=== PATIENT | female | born 1975 | race Caucasian/White ===

== ENCOUNTER 2017-06-30 06:27 | Observation (INO) | payer OTHER ==
[~2017-06-30] VITALS: Ht 170.2 cm; Wt 108.9 kg
[~2017-06-30 06:27] MED LIST: Mobic15 MG PO
[2017-06-30] MEDS ORDERED: QUET25 PO (06:59)
[2017-06-30] MEDS ORDERED: LITH300C PO (06:59)
[2017-06-30 07:09] LABS: BASOPHILS ABSOLUTE AUTO 0.06 K/mm3 (0.00-0.23); BASOPHILS PERCENT AUTO 1 % (0-2); EOSINOPHILS ABSOLUTE AUTO 0.37 K/mm3 (0.00-0.68); EOSINOPHILS PERCENT AUTO 3 % (0-6); Hematocrit 37.6 % (33.0-51.0); Hemoglobin 12.2 g/dL (11.5-16.0); IMMATURE GRAN ABSOLUTE AUTO 0.06 K/mm3 (0.00-0.10); IMMATURE GRAN PERCENT AUTO 1 % (0-1); LYMPHOCYTES PERCENT AUTO 20 % (21-46); MONOCYTES ABSOLUTE AUTO 0.79 K/mm3 (0.16-1.47); MONOCYTES PERCENT AUTO 7 % (4-13); Mean Corpuscular HGB 29.9 pg (26.0-34.0); Mean Corpuscular HGB Conc 32.4 g/dL (31.5-36.5); Mean Corpuscular Volume 92 fL (80-100); Mean Platelet Volume 9.1 fL (9.1-12.4); NEUTROPHILS ABSOLUTE AUTO 7.77 K/mm3 (1.96-9.15); NEUTROPHILS PERCENT AUTO 69 % (41-73); Platelet Count 385 K/mm3 (150-400); RDW Coefficient Variation 13.5 % (11.7-14.2); RDW Standard Deviation 45.4 fL (35.1-46.3); Red Blood Cell Count 4.08 M/mm3 (3.80-5.20); White Blood Cell Count 11.25 K/mm3 (4.00-11.30)
[2017-06-30 07:32] LABS: Anion Gap 6 mmol/L (6-16); Blood Urea Nitrogen 10 mg/dL (8-24); Bun/Creatinine Ratio 13.3 (12.0-20.0); CO2, Blood 24 mmol/L (21-32); Calcium, Blood 8.8 mg/dL (8.5-10.1); Chloride, Blood 108 mmol/L (98-108); Creatinine, Blood 0.75 mg/dL (0.40-1.00); Glomerular Filtration Rate >60 (60-); Glucose, Blood 107 mg/dL (70-99); Sodium, Blood 138 mmol/L (136-145)
[2017-06-30 07:39] LABS: Lithium 0.69 mmol/L (0.60-1.20)
[2017-06-30 11:20] LABS: Source, Urine Clean Catch
[2017-06-30 11:28] LABS: Bilirubin, Urine Neg (Neg); Blood, Urine Neg (Neg); Glucose Qualitative, Urine Neg (Neg); Ketones, Urine Neg (Neg); Leukocyte Esterase, Urine Neg (Neg); Nitrite, Urine Neg (Neg); Protein, Urine Neg (Neg); Urobilinogen, Urine NORM (Normal)
[2017-06-30 11:35] LABS: Appearance, Urine Clear (Clear); Color, Urine Pale Yellow (P-Yellow)
[2017-06-30 11:39] LABS: U Amphetamine Screen Not Detected; U Barbituate Screen Not Detected; U Benzodiazapine Screen Not Detected; U Cannabinoids Screen DETECTED; U Cocaine Screen Not Detected; U Methadone Screen Not Detected; U Methamphetamine Screen Not Detected; U Opiates Screen Not Detected; U Phencyclidine Screen Not Detected
[2017-06-30 11:40] LABS: U Buprenorphine Screen Not Detected; U Oxycodone Screen Not Detected; U Propoxyphene Screen Not Detected
[2017-07-01 08:46] LABS: Lithium 0.35 mmol/L (0.60-1.20)
[2017-07-01 09:46] LABS: BASOPHILS ABSOLUTE AUTO 0.07 K/mm3 (0.00-0.23); BASOPHILS PERCENT AUTO 1 % (0-2); EOSINOPHILS ABSOLUTE AUTO 0.23 K/mm3 (0.00-0.68); EOSINOPHILS PERCENT AUTO 2 % (0-6); Hematocrit 38.3 % (33.0-51.0); Hemoglobin 12.2 g/dL (11.5-16.0); IMMATURE GRAN ABSOLUTE AUTO 0.05 K/mm3 (0.00-0.10); IMMATURE GRAN PERCENT AUTO 0 % (0-1); LYMPHOCYTES PERCENT AUTO 18 % (21-46); MONOCYTES ABSOLUTE AUTO 0.91 K/mm3 (0.16-1.47); MONOCYTES PERCENT AUTO 8 % (4-13); Mean Corpuscular HGB 29.9 pg (26.0-34.0); Mean Corpuscular HGB Conc 31.9 g/dL (31.5-36.5); Mean Corpuscular Volume 94 fL (80-100); Mean Platelet Volume 9.2 fL (9.1-12.4); NEUTROPHILS ABSOLUTE AUTO 8.12 K/mm3 (1.96-9.15); NEUTROPHILS PERCENT AUTO 71 % (41-73); Platelet Count 402 K/mm3 (150-400); RDW Coefficient Variation 13.6 % (11.7-14.2); RDW Standard Deviation 47.2 fL (35.1-46.3); Red Blood Cell Count 4.08 M/mm3 (3.80-5.20); White Blood Cell Count 11.48 K/mm3 (4.00-11.30)
[2017-07-01 10:09] LABS: Alanine Aminotransfer (ALT/SGP 48 U/L (12-78); Albumin, Blood 3.8 g/dL (3.4-5.0); Albumin/Globulin Ratio 1.1 (0.8-1.8); Alk Phos 85 U/L (50-136); Anion Gap 6 mmol/L (6-16); Aspartate Aminotrans (AST/SGOT 34 U/L (12-37); Bilirubin, Total 0.3 mg/dL (0.1-1.0); Blood Urea Nitrogen 10 mg/dL (8-24); Bun/Creatinine Ratio 11.6 (12.0-20.0); CO2, Blood 25 mmol/L (21-32); Calcium, Blood 8.8 mg/dL (8.5-10.1); Chloride, Blood 110 mmol/L (98-108); Creatinine, Blood 0.86 mg/dL (0.40-1.00); Ethanol (Alcohol), Blood, Med <3 mg/dL; Globulin, Blood 3.6 g/dL (2.2-4.0); Glomerular Filtration Rate >60 (60-); Glucose, Blood 105 mg/dL (70-99); Potassium, Blood 4.1 mmol/L (3.5-5.5); Salicylate <1.7 mg/dL (2.8-20.0); Sodium, Blood 141 mmol/L (136-145); Thyroxine (T4) 8.3 ug/dL (4.8-13.9); Total Protein, Blood 7.4 g/dL (6.4-8.2)
[2017-07-01 10:14] LABS: Acetaminophen, Random <2.0 ug/mL (10.0-30.0)
[2017-07-02 09:46] LABS: Lithium 0.75 mmol/L (0.60-1.20)
[2017-07-02 20:23] LABS: Candida species (DNA Probe) Negative (NEGATIVE); G. vaginalis (DNA Probe) Negative (NEGATIVE); T. vaginalis (DNA Probe) Negative (NEGATIVE)
[2017-07-05 03:25] LABS: Source Cervix
[2017-07-05 07:23] LABS: Lithium 0.75 mmol/L (0.60-1.20)
[2017-07-05] MEDS ORDERED: Cardizem Cd180 MG PO (15:54)
[2017-07-23] MEDS ORDERED: QUET25 PO (05:15)
[2017-07-23] MEDS ORDERED: NICO21TP TD (13:50)
[2017-07-23] MEDS ORDERED: Bactrim 400-801 EACH PO (13:54)
== END 2017-07-05 16:23 | disposition home or self-care (01) ==
LOC: ER 06:27 → EOR 06:28
PROVIDERS: Emergency Medicine; Physician Assistant; Psychiatry & Neurology Psychiatry
DX: F15.94 Other stimulant use, unspecified with stimulant-induced mood disorder (principal); F15.959 Other stimulant use, unspecified with stimulant-induced psychotic disorder, unspecified; F43.9 Reaction to severe stress, unspecified; R05 Cough; Z72.0 Tobacco use; Z79.1 Long term (current) use of non-steroidal anti-inflammatories (NSAID)
CPT/HCPCS: 36415; 80048; 80053; 80178; 81003; 84436; 84443; 84703; 85025; 87070; 87205; 87480; 87491; 87510; 87591; 87660; 87661; 96372; 99285; G0378; G0480; J3486

== ENCOUNTER 2017-07-22 21:37 | Observation (INO) | payer OTHER ==
[~2017-07-22] VITALS: Ht 175.3 cm; Wt 107.4 kg
[~2017-07-22 21:37] MED LIST changes: +Cardizem Cd180 MG PO; +LITH300C PO; +QUET25 PO
[2017-07-22 23:06] LABS: Source, Urine Clean Catch
[2017-07-22 23:09] LABS: Bilirubin, Urine Neg (Neg); Blood, Urine 5+ (Neg); Glucose Qualitative, Urine Neg (Neg); Ketones, Urine Neg (Neg); Leukocyte Esterase, Urine 1+ (Neg); Nitrite, Urine Neg (Neg); Protein, Urine 2+ (Neg); Urobilinogen, Urine NORM (Normal)
[2017-07-22 23:10] LABS: Appearance, Urine Hazy (Clear); Color, Urine Amber (P-Yellow)
[2017-07-22 23:12] LABS: BASOPHILS ABSOLUTE AUTO 0.09 K/mm3 (0.00-0.23); BASOPHILS PERCENT AUTO 1 % (0-2); EOSINOPHILS ABSOLUTE AUTO 0.49 K/mm3 (0.00-0.68); EOSINOPHILS PERCENT AUTO 4 % (0-6); Hematocrit 40.1 % (33.0-51.0); Hemoglobin 12.7 g/dL (11.5-16.0); IMMATURE GRAN ABSOLUTE AUTO 0.07 K/mm3 (0.00-0.10); IMMATURE GRAN PERCENT AUTO 1 % (0-1); LYMPHOCYTES ABSOLUTE AUTO 3.53 K/mm3 (0.84-5.20); LYMPHOCYTES PERCENT AUTO 29 % (21-46); MONOCYTES ABSOLUTE AUTO 1.01 K/mm3 (0.16-1.47); MONOCYTES PERCENT AUTO 8 % (4-13); Mean Corpuscular HGB 29.5 pg (26.0-34.0); Mean Corpuscular HGB Conc 31.7 g/dL (31.5-36.5); Mean Corpuscular Volume 93 fL (80-100); Mean Platelet Volume 9.5 fL (9.1-12.4); NEUTROPHILS ABSOLUTE AUTO 6.84 K/mm3 (1.96-9.15); NEUTROPHILS PERCENT AUTO 57 % (41-73); Platelet Count 347 K/mm3 (150-400); RDW Coefficient Variation 13.3 % (11.7-14.2); RDW Standard Deviation 46.4 fL (35.1-46.3); Red Blood Cell Count 4.31 M/mm3 (3.80-5.20); White Blood Cell Count 12.03 K/mm3 (4.00-11.30)
[2017-07-22 23:18] LABS: Bacteria Mod /hpf; Squamous Epithelial Cells Few /hpf (Few)
[2017-07-22 23:21] LABS: U Amphetamine Screen Not Detected; U Barbituate Screen Not Detected; U Benzodiazapine Screen Not Detected; U Buprenorphine Screen Not Detected; U Cannabinoids Screen Not Detected; U Cocaine Screen Not Detected; U Methadone Screen Not Detected; U Methamphetamine Screen Not Detected; U Opiates Screen Not Detected; U Oxycodone Screen Not Detected; U Phencyclidine Screen Not Detected; U Propoxyphene Screen Not Detected
[2017-07-22 23:30] LABS: Alanine Aminotransfer (ALT/SGP 19 U/L (12-78); Albumin, Blood 3.6 g/dL (3.4-5.0); Alk Phos 82 U/L (50-136); Anion Gap 9 mmol/L (6-16); Aspartate Aminotrans (AST/SGOT 10 U/L (12-37); Bilirubin, Total 0.1 mg/dL (0.1-1.0); Blood Urea Nitrogen 13 mg/dL (8-24); Bun/Creatinine Ratio 17.6 (12.0-20.0); CO2, Blood 24 mmol/L (21-32); Calcium, Blood 8.8 mg/dL (8.5-10.1); Chloride, Blood 107 mmol/L (98-108); Creatinine, Blood 0.74 mg/dL (0.40-1.00); Ethanol (Alcohol), Blood, Med <3 mg/dL; Globulin, Blood 3.7 g/dL (2.2-4.0); Glomerular Filtration Rate >60 (60-); Glucose, Blood 129 mg/dL (70-99); Potassium, Blood 3.2 mmol/L (3.5-5.5); Salicylate <1.7 mg/dL (2.8-20.0); Sodium, Blood 140 mmol/L (136-145); Total Protein, Blood 7.3 g/dL (6.4-8.2)
[2017-07-22 23:31] LABS: Acetaminophen, Random <2.0 ug/mL (10.0-30.0)
[2017-07-23] MEDS ORDERED: QUET25 PO ×2 (05:15)
[2017-07-23 06:07] LABS: BASOPHILS ABSOLUTE AUTO 0.09 K/mm3 (0.00-0.23); BASOPHILS PERCENT AUTO 1 % (0-2); EOSINOPHILS ABSOLUTE AUTO 0.46 K/mm3 (0.00-0.68); EOSINOPHILS PERCENT AUTO 4 % (0-6); Hematocrit 39.9 % (33.0-51.0); Hemoglobin 12.5 g/dL (11.5-16.0); IMMATURE GRAN ABSOLUTE AUTO 0.07 K/mm3 (0.00-0.10); IMMATURE GRAN PERCENT AUTO 1 % (0-1); LYMPHOCYTES ABSOLUTE AUTO 2.72 K/mm3 (0.84-5.20); LYMPHOCYTES PERCENT AUTO 25 % (21-46); MONOCYTES ABSOLUTE AUTO 0.89 K/mm3 (0.16-1.47); MONOCYTES PERCENT AUTO 8 % (4-13); Mean Corpuscular HGB 29.2 pg (26.0-34.0); Mean Corpuscular HGB Conc 31.3 g/dL (31.5-36.5); Mean Corpuscular Volume 93 fL (80-100); Mean Platelet Volume 9.5 fL (9.1-12.4); NEUTROPHILS ABSOLUTE AUTO 6.88 K/mm3 (1.96-9.15); NEUTROPHILS PERCENT AUTO 62 % (41-73); Platelet Count 361 K/mm3 (150-400); RDW Coefficient Variation 13.5 % (11.7-14.2); RDW Standard Deviation 46.4 fL (35.1-46.3); Red Blood Cell Count 4.28 M/mm3 (3.80-5.20); White Blood Cell Count 11.11 K/mm3 (4.00-11.30)
[2017-07-23 06:29] LABS: Alanine Aminotransfer (ALT/SGP 18 U/L (12-78); Albumin, Blood 3.5 g/dL (3.4-5.0); Alk Phos 85 U/L (50-136); Anion Gap 6 mmol/L (6-16); Aspartate Aminotrans (AST/SGOT 9 U/L (12-37); Bilirubin, Total 0.3 mg/dL (0.1-1.0); Blood Urea Nitrogen 13 mg/dL (8-24); Bun/Creatinine Ratio 18.3 (12.0-20.0); CO2, Blood 23 mmol/L (21-32); Calcium, Blood 8.6 mg/dL (8.5-10.1); Chloride, Blood 112 mmol/L (98-108); Creatinine, Blood 0.71 mg/dL (0.40-1.00); Globulin, Blood 3.6 g/dL (2.2-4.0); Glomerular Filtration Rate >60 (60-); Glucose, Blood 99 mg/dL (70-99); Potassium, Blood 3.9 mmol/L (3.5-5.5); Sodium, Blood 141 mmol/L (136-145); Total Protein, Blood 7.1 g/dL (6.4-8.2)
[2017-07-23] MEDS ORDERED: NICO21TP TD ×2 (13:50)
[2017-07-23] MEDS ORDERED: Bactrim 400-801 EACH PO ×2 (13:54)
== END 2017-07-23 14:13 | disposition home or self-care (01) ==
LOC: ER 21:37 → ERHOLD 21:38 → MEDS 07-23 05:04
PROVIDERS: Emergency Medicine; Internal Medicine
DX: R47.81 Slurred speech (principal); F25.9 Schizoaffective disorder, unspecified; F31.9 Bipolar disorder, unspecified; G47.00 Insomnia, unspecified; F41.0 Panic disorder [episodic paroxysmal anxiety]; N39.0 Urinary tract infection, site not specified; Z91.09 Other allergy status, other than to drugs and biological substances; Z23 Encounter for immunization
CPT/HCPCS: 36415; 70450; 80053; 80178; 81001; 81025; 85025; 87086; 93005; 93010; 96360; 96361; 96372; 96374; 99285; G0008; G0378; G0480; J1650; J3480; J7030; Q2038

== ENCOUNTER 2017-07-23 20:00 | Emergency (ER) | payer OTHER ==
[~2017-07-23] VITALS: Ht 170.2 cm; Wt 104.3 kg
[~2017-07-23 20:00] MED LIST changes: +Bactrim 400-801 EACH PO; +NICO21TP TD
== END 2017-07-23 23:55 | disposition left against medical advice (07) ==
LOC: ER 20:00
DX: Z53.21 Procedure and treatment not carried out due to patient leaving prior to being seen by health care provider (principal)

== ENCOUNTER → 2017-10-24 | Outpatient (CLI) | payer OTHER | LOC: LAB SHORT 14:15 → LAB 14:15 | PROVIDERS: Nurse Practitioner Family | DX: Z12.4 Encounter for screening for malignant neoplasm of cervix (principal) | CPT/HCPCS: G0145 ==

== ENCOUNTER 2017-11-10 19:10 | Emergency (ER) | payer OTHER ==
[~2017-11-10] VITALS: Ht 170.2 cm; Wt 108.9 kg
[2017-11-10 20:24] LABS: Lithium 0.84 mmol/L (0.60-1.20)
== END 2017-11-10 19:52 | disposition left against medical advice (07) ==
LOC: ER 19:10
PROVIDERS: Physician Assistant
DX: Z51.81 Encounter for therapeutic drug level monitoring (principal); F31.9 Bipolar disorder, unspecified; Z91.048 Other nonmedicinal substance allergy status; Z91.09 Other allergy status, other than to drugs and biological substances; F17.200 Nicotine dependence, unspecified, uncomplicated; Z79.899 Other long term (current) drug therapy
CPT/HCPCS: 36415; 80178; 99283

== ENCOUNTER 2017-11-12 10:29 | Observation (INO) | payer OTHER ==
[~2017-11-12] VITALS: Ht 170.2 cm; Wt 108.9 kg
[2017-11-12 11:45] LABS: U Amphetamine Screen Not Detected; U Barbituate Screen Not Detected; U Benzodiazapine Screen Not Detected; U Methamphetamine Screen Not Detected
[2017-11-12 11:46] LABS: U Buprenorphine Screen Not Detected; U Cannabinoids Screen DETECTED; U Cocaine Screen Not Detected; U Methadone Screen Not Detected; U Opiates Screen Not Detected; U Oxycodone Screen Not Detected; U Phencyclidine Screen Not Detected; U Propoxyphene Screen Not Detected
== END 2017-11-12 13:41 | disposition home or self-care (01) ==
LOC: ER 10:29 → EOR 12:44
PROVIDERS: Emergency Medicine
DX: R44.0 Auditory hallucinations (principal); F41.9 Anxiety disorder, unspecified; F31.9 Bipolar disorder, unspecified; K21.9 Gastro-esophageal reflux disease without esophagitis
CPT/HCPCS: 81025; 93005; 93010; 99285; G0378; Q3014

== ENCOUNTER 2017-11-13 02:17 | Emergency (ER) | payer OTHER ==
[~2017-11-13] VITALS: Ht 170.2 cm; Wt 90.7 kg
== END 2017-11-13 03:32 | disposition home or self-care (01) ==
LOC: ER 02:17
DX: M19.90 Unspecified osteoarthritis, unspecified site (principal); F31.9 Bipolar disorder, unspecified; F17.210 Nicotine dependence, cigarettes, uncomplicated; Z91.048 Other nonmedicinal substance allergy status; Z79.899 Other long term (current) drug therapy
CPT/HCPCS: 99283

== ENCOUNTER 2018-07-08 08:05 | Emergency (ER) | payer OTHER ==
[~2018-07-08] VITALS: Ht 170.2 cm; Wt 99.8 kg
== END 2018-07-08 10:13 | disposition home or self-care (01) ==
LOC: ER 08:05
DX: K59.00 Constipation, unspecified (principal); Z91.048 Other nonmedicinal substance allergy status; Z79.899 Other long term (current) drug therapy; F31.9 Bipolar disorder, unspecified; Z87.891 Personal history of nicotine dependence
CPT/HCPCS: 74022; 99284-25

== ENCOUNTER 2018-09-07 06:17 | Emergency (ER) | payer OTHER ==
[~2018-09-07] VITALS: Ht 170.2 cm; Wt 97.5 kg
== END 2018-09-07 08:29 | disposition home or self-care (01) ==
LOC: ER 06:17
DX: R51 Headache (principal); J30.81 Allergic rhinitis due to animal (cat) (dog) hair and dander; F17.200 Nicotine dependence, unspecified, uncomplicated
CPT/HCPCS: 96372; 99284-25; J1885; Q0163

== ENCOUNTER 2019-12-21 13:48 | Day surgery (SDC) | payer OTHER ==
[~2019-12-21] VITALS: Ht 170.2 cm; Wt 103.7 kg
[2019-12-21] MEDS ORDERED: MONT4 PO (15:14)
[2019-12-21] MEDS ORDERED: FLUT1DIS5 INH (15:15)
--- NOTE | 2019-12-21 17:06 | NUR ---
12/21/19 3616 Beth Peterson WE WERE MOVING TO STEPDOWN THE PATIENT STATED SHE WAS HAVING NAUSEA, GAVE HER EMESIS BAG AND SHE STARTED THROWING UP. REGLAN GIVEN PER MD ORDER AND PATIENT WAS ABLE TO TRANSITION TO CHAIR WITH MINIMAL HELP. STATES NO PAIN IN THE KNEE AND FEELS FINE EXCEPT FOR THE NAUSEA. ONCE SHE WAS SETTLED IN THE CHAIR SHE BEGAN VOMITING AGAIN AND I CALLED DR NAIDU AND RECEIVED ORDER FOR ONE DOSE OF ZOFRAN. THIS WAS GIVEN PER MD ORDER. PATIENT IS SIPPING ON JEN MIST AND NIBBLING ON CRACKERS
== END 2019-12-21 17:45 | disposition home or self-care (01) ==
LOC: ORSCSDS 13:48
PROVIDERS: Orthopaedic Surgery
PROC: 0SBD4ZZ Excision of Left Knee Joint, Percutaneous Endoscopic Approach (ICD-10-PCS; principal; 2019-12-21 15:15)
DX: S83.242A Other tear of medial meniscus, current injury, left knee, initial encounter (principal); S83.282A Other tear of lateral meniscus, current injury, left knee, initial encounter; M17.12 Unilateral primary osteoarthritis, left knee; M94.262 Chondromalacia, left knee; I10 Essential (primary) hypertension; J45.909 Unspecified asthma, uncomplicated; K21.9 Gastro-esophageal reflux disease without esophagitis; Z87.891 Personal history of nicotine dependence; F31.9 Bipolar disorder, unspecified; E66.01 Morbid (severe) obesity due to excess calories; Z68.35 Body mass index [BMI] 35.0-35.9, adult; Z79.899 Other long term (current) drug therapy
CPT/HCPCS: J0690; J1100; J1885; J2250; J2405; J2704; J2765; J3010; J7120

== ENCOUNTER 2020-11-16 11:20 | Inpatient (IN) | payer OTHER ==
[~2020-11-16] VITALS: Ht 177.8 cm; Wt 99.7 kg
[~2020-11-16 11:20] MED LIST changes: +FLUT1DIS5 INH; +MONT4 PO
[2020-11-16 13:12] LABS: BASOPHILS ABSOLUTE AUTO 0.12 K/mm3 (0.00-0.23); BASOPHILS PERCENT AUTO 1 % (0-2); EOSINOPHILS ABSOLUTE AUTO 0.55 K/mm3 (0.00-0.68); EOSINOPHILS PERCENT AUTO 4 % (0-6); Hematocrit 38.5 % (33.0-51.0); Hemoglobin 12.8 g/dL (11.5-16.0); IMMATURE GRAN ABSOLUTE AUTO 0.17 K/mm3 (0.00-0.10); IMMATURE GRAN PERCENT AUTO 1 % (0-1); LYMPHOCYTES ABSOLUTE AUTO 2.25 K/mm3 (0.84-5.20); LYMPHOCYTES PERCENT AUTO 15 % (21-46); MONOCYTES ABSOLUTE AUTO 1.16 K/mm3 (0.16-1.47); MONOCYTES PERCENT AUTO 8 % (4-13); Mean Corpuscular HGB 30.8 pg (26.0-34.0); Mean Corpuscular HGB Conc 33.2 g/dL (31.5-36.5); Mean Corpuscular Volume 93 fL (80-100); Mean Platelet Volume 9.8 fL (9.1-12.4); NEUTROPHILS ABSOLUTE AUTO 10.95 K/mm3 (1.96-9.15); NEUTROPHILS PERCENT AUTO 72 % (41-73); Platelet Count 379 K/mm3 (150-400); RDW Standard Deviation 41.6 fL (35.1-46.3); Red Blood Cell Count 4.15 M/mm3 (3.80-5.20)
[2020-11-16 13:19] LABS: U Amphetamine Screen Not Detected; U Barbituate Screen Not Detected; U Benzodiazapine Screen Not Detected; U Cannabinoids Screen DETECTED; U Methamphetamine Screen Not Detected
[2020-11-16 13:20] LABS: U Buprenorphine Screen Not Detected; U Cocaine Screen Not Detected; U Methadone Screen Not Detected; U Opiates Screen Not Detected; U Oxycodone Screen Not Detected; U Phencyclidine Screen Not Detected; U Propoxyphene Screen Not Detected
[2020-11-16 13:24] LABS: Albumin/Globulin Ratio 1.2 (0.8-1.8); Bilirubin, Total 0.3 mg/dL (0.1-1.0); Bun/Creatinine Ratio 14.4 (12.0-20.0); Calcium, Blood 9.7 mg/dL (8.5-10.1); Creatinine, Blood 1.11 mg/dL (0.40-1.00); Globulin, Blood 3.2 g/dL (2.2-4.0); Potassium, Blood 3.3 mmol/L (3.5-5.5); Total Protein, Blood 7.2 g/dL (6.4-8.2)
[2020-11-16 14:15] LABS: Lithium 3.03 mmol/L (0.60-1.20)
[2020-11-16] MEDS ORDERED: VRAYLAR1.5 MG PO (14:56)
--- NOTE | 2020-11-16 17:55 | NUR ---
PT ARRIVED TO THE MEDICAL FLOOR AT 1630 VIA GURNEY FROM THE ER, THE PT WAS ABLE TO TRANSFER TO THE BED WITH MINIMAL ASSISTANCE, THE PT IS PLEASANT AND COOPERATIVE, SLIGHTLY SLURRED SPEACH, THE PT IS A/OX3, PT DENIES PAIN AT THIS TIME, THE PT WAS ORIENTED TO THE ROOM LAYOUT AND CALL SYSTEM, THE PT IS A POOR MEDICAL HX HISTORIAN, PT APPEARS TO BE BREATHING EASILY AT THIS TIME, CALL LIGHT IN REACH, THE POISON CONTROL CENTER CALLED WITH RECOMMENDATIONS FOR THE PTS LITHIUM TOXICITY, THEY ASKED TO SPEAK TO THE HOSPITALIST IN CHARGE A CALL WAS MADE TO BOTH DR. CONDE AND DR. KRAMER THE PHONE NUMBER FOR MALERIE AT THE POISON CONTROL CENTER WAS GIVEN TO DR. KRAMER, CALL LIGHT IN [facility] WILL CONTINUE TO MONITOR AND ASSESS FOR CHANGES
[2020-11-16 18:02] LABS: Alanine Aminotransfer (ALT/SGP 34 U/L (12-78); Albumin, Blood 3.9 g/dL (3.4-5.0); Albumin/Globulin Ratio 1.2 (0.8-1.8); Alk Phos 127 U/L (50-136); Anion Gap 5 mmol/L (6-16); Aspartate Aminotrans (AST/SGOT 15 U/L (12-37); Bilirubin, Total 0.4 mg/dL (0.1-1.0); Blood Urea Nitrogen 14 mg/dL (8-24); Bun/Creatinine Ratio 13.3 (12.0-20.0); CO2, Blood 21 mmol/L (21-32); Calcium, Blood 9.5 mg/dL (8.5-10.1); Chloride, Blood 110 mmol/L (98-108); Creatinine, Blood 1.05 mg/dL (0.40-1.00); Globulin, Blood 3.2 g/dL (2.2-4.0); Glomerular Filtration Rate >60 (60-); Glucose, Blood 72 mg/dL (70-99); Potassium, Blood 3.7 mmol/L (3.5-5.5); Sodium, Blood 136 mmol/L (136-145); Total Protein, Blood 7.1 g/dL (6.4-8.2)
[2020-11-16 18:29] LABS: Lithium 2.67 mmol/L (0.60-1.20)
[2020-11-16] MEDS ORDERED: OMEP20ER PO (19:39)
[2020-11-16] MEDS ORDERED: ALBU90OI INH (19:40)
--- NOTE | 2020-11-16 21:19 | NUR ---
POISON CONTROL SPOKE WITH SAM FROM POISON CONTROL. UPDATED ON LATEST LAB LEVELS, VITAL SIGNS AND MENTAL STATE. NO FURTHER RECOMMENDATIONS AT THIS TIME.
[2020-11-16 22:09] LABS: Alanine Aminotransfer (ALT/SGP 32 U/L (12-78); Albumin, Blood 3.5 g/dL (3.4-5.0); Albumin/Globulin Ratio 1.2 (0.8-1.8); Alk Phos 114 U/L (50-136); Anion Gap 3 mmol/L (6-16); Aspartate Aminotrans (AST/SGOT 13 U/L (12-37); Bilirubin, Total 0.3 mg/dL (0.1-1.0); Blood Urea Nitrogen 11 mg/dL (8-24); Bun/Creatinine Ratio 11.4 (12.0-20.0); CO2, Blood 23 mmol/L (21-32); Calcium, Blood 8.7 mg/dL (8.5-10.1); Chloride, Blood 113 mmol/L (98-108); Creatinine, Blood 0.97 mg/dL (0.40-1.00); Globulin, Blood 2.9 g/dL (2.2-4.0); Glomerular Filtration Rate >60 (60-); Glucose, Blood 84 mg/dL (70-99); Potassium, Blood 3.8 mmol/L (3.5-5.5); Sodium, Blood 139 mmol/L (136-145); Total Protein, Blood 6.4 g/dL (6.4-8.2)
[2020-11-16 22:25] LABS: Lithium 2.27 mmol/L (0.60-1.20)
[2020-11-17 01:39] LABS: Alanine Aminotransfer (ALT/SGP 29 U/L (12-78); Albumin, Blood 3.4 g/dL (3.4-5.0); Albumin/Globulin Ratio 1.2 (0.8-1.8); Alk Phos 116 U/L (50-136); Anion Gap 3 mmol/L (6-16); Aspartate Aminotrans (AST/SGOT 11 U/L (12-37); Bilirubin, Total 0.3 mg/dL (0.1-1.0); Blood Urea Nitrogen 9 mg/dL (8-24); Bun/Creatinine Ratio 10.6 (12.0-20.0); CO2, Blood 23 mmol/L (21-32); Calcium, Blood 8.4 mg/dL (8.5-10.1); Chloride, Blood 113 mmol/L (98-108); Creatinine, Blood 0.85 mg/dL (0.40-1.00); Globulin, Blood 2.8 g/dL (2.2-4.0); Glomerular Filtration Rate >60 (60-); Glucose, Blood 106 mg/dL (70-99); Potassium, Blood 3.3 mmol/L (3.5-5.5); Sodium, Blood 139 mmol/L (136-145); Total Protein, Blood 6.2 g/dL (6.4-8.2)
[2020-11-17 05:14] LABS: BASOPHILS ABSOLUTE AUTO 0.11 K/mm3 (0.00-0.23); BASOPHILS PERCENT AUTO 1 % (0-2); EOSINOPHILS ABSOLUTE AUTO 0.44 K/mm3 (0.00-0.68); EOSINOPHILS PERCENT AUTO 3 % (0-6); Hematocrit 38.3 % (33.0-51.0); Hemoglobin 12.3 g/dL (11.5-16.0); IMMATURE GRAN ABSOLUTE AUTO 0.11 K/mm3 (0.00-0.10); IMMATURE GRAN PERCENT AUTO 1 % (0-1); LYMPHOCYTES ABSOLUTE AUTO 2.19 K/mm3 (0.84-5.20); LYMPHOCYTES PERCENT AUTO 17 % (21-46); MONOCYTES ABSOLUTE AUTO 1.49 K/mm3 (0.16-1.47); MONOCYTES PERCENT AUTO 11 % (4-13); Mean Corpuscular HGB 31.3 pg (26.0-34.0); Mean Corpuscular HGB Conc 32.1 g/dL (31.5-36.5); Mean Corpuscular Volume 98 fL (80-100); Mean Platelet Volume 9.9 fL (9.1-12.4); NEUTROPHILS ABSOLUTE AUTO 8.91 K/mm3 (1.96-9.15); NEUTROPHILS PERCENT AUTO 67 % (41-73); Platelet Count 324 K/mm3 (150-400); RDW Coefficient Variation 12.4 % (11.7-14.2); RDW Standard Deviation 44.9 fL (35.1-46.3); Red Blood Cell Count 3.93 M/mm3 (3.80-5.20); White Blood Cell Count 13.25 K/mm3 (4.00-11.30)
[2020-11-17 05:37] LABS: Alanine Aminotransfer (ALT/SGP 30 U/L (12-78); Albumin, Blood 3.5 g/dL (3.4-5.0); Albumin/Globulin Ratio 1.2 (0.8-1.8); Alk Phos 124 U/L (50-136); Anion Gap 2 mmol/L (6-16); Aspartate Aminotrans (AST/SGOT 12 U/L (12-37); Bilirubin, Total 0.3 mg/dL (0.1-1.0); Blood Urea Nitrogen 8 mg/dL (8-24); Bun/Creatinine Ratio 9.5 (12.0-20.0); CO2, Blood 22 mmol/L (21-32); Calcium, Blood 8.6 mg/dL (8.5-10.1); Chloride, Blood 115 mmol/L (98-108); Creatinine, Blood 0.85 mg/dL (0.40-1.00); Glomerular Filtration Rate >60 (60-); Glucose, Blood 94 mg/dL (70-99); Potassium, Blood 3.4 mmol/L (3.5-5.5); Sodium, Blood 139 mmol/L (136-145); Total Protein, Blood 6.5 g/dL (6.4-8.2)
--- NOTE | 2020-11-17 06:31 | NUR ---
SHIFT SUMMARY PT IS A 45 Y/O FEMALE, ADMITTED FOR LITHIUM OVERDOSE. PT IS A&O X SELF & FAMILY, CONFUSED WITH SLURRED SPEECH AT TIMES. 1PA TO BSC. POISON CONTROL IS FOLLOWING PT. NO C/O ACUTE PAIN, NAUSEA OR SOB. VITAL SIGNS STABLE. PT RECEIVING NS @ 125 ML/HR. NO ACUTE CHANGES IN PT CONDITION NOTED DURING THE NIGHT. WILL CONTINUE TO MONITOR AND TREAT PER EMAR UNTIL HAND OFF TO DAY SHIFT RN.
[2020-11-17 08:12] LABS: Lithium 1.61 mmol/L (0.60-1.20)
[2020-11-17 13:30] LABS: Alanine Aminotransfer (ALT/SGP 33 U/L (12-78); Albumin, Blood 3.7 g/dL (3.4-5.0); Albumin/Globulin Ratio 1.3 (0.8-1.8); Alk Phos 137 U/L (50-136); Anion Gap 5 mmol/L (6-16); Aspartate Aminotrans (AST/SGOT 7 U/L (12-37); Bilirubin, Total 0.3 mg/dL (0.1-1.0); Blood Urea Nitrogen 7 mg/dL (8-24); Bun/Creatinine Ratio 8.7 (12.0-20.0); CO2, Blood 21 mmol/L (21-32); Calcium, Blood 9.3 mg/dL (8.5-10.1); Chloride, Blood 115 mmol/L (98-108); Globulin, Blood 2.8 g/dL (2.2-4.0); Glomerular Filtration Rate >60 (60-); Glucose, Blood 109 mg/dL (70-99); Potassium, Blood 4.3 mmol/L (3.5-5.5); Sodium, Blood 141 mmol/L (136-145); Total Protein, Blood 6.5 g/dL (6.4-8.2)
[2020-11-17 13:36] LABS: Lithium 1.47 mmol/L (0.60-1.20)
--- NOTE | 2020-11-17 19:38 | NUR ---
SHIFT SUMMARY: NO ACUTE CHANGES TO REPORT THIS SHIFT. PT ALERT; CONFUSED; SLURRED SPEECH; CALM AND COOPERATIVE WITH CARE. SERIAL LITHIUM LABS; VALUE TRENDING DOWN. FLUIDS CONTINUING. FAMILY UPDATED WITH PLAN OF CARE. REPORT GIVEN TO ONCOMING RN.
[2020-11-17 19:54] LABS: Alanine Aminotransfer (ALT/SGP 33 U/L (12-78); Albumin, Blood 3.7 g/dL (3.4-5.0); Albumin/Globulin Ratio 1.1 (0.8-1.8); Alk Phos 135 U/L (50-136); Anion Gap 4 mmol/L (6-16); Aspartate Aminotrans (AST/SGOT 12 U/L (12-37); Bilirubin, Total 0.3 mg/dL (0.1-1.0); Blood Urea Nitrogen 7 mg/dL (8-24); Bun/Creatinine Ratio 8.3 (12.0-20.0); CO2, Blood 22 mmol/L (21-32); Calcium, Blood 10.1 mg/dL (8.5-10.1); Chloride, Blood 117 mmol/L (98-108); Creatinine, Blood 0.84 mg/dL (0.40-1.00); Globulin, Blood 3.3 g/dL (2.2-4.0); Glomerular Filtration Rate >60 (60-); Glucose, Blood 106 mg/dL (70-99); Potassium, Blood 4.3 mmol/L (3.5-5.5); Sodium, Blood 143 mmol/L (136-145)
[2020-11-17 19:58] LABS: Lithium 1.21 mmol/L (0.60-1.20)
--- NOTE | 2020-11-17 20:58 | NUR ---
PHYSICIAN COMMUNICATION CONTACTED RAIL BONDER PHYSICIAN, DR KIRBY, TO NOTIFY HIM THAT THE PATIENT IS VERY CONFUSED AND A HIGH FALL RISK AND THAT SHE HAS TRIED TO GET OUT OF BED WITHOUT ASKING FOR ASSISTANCE THREE TIMES IN THE LAST HOUR. DR KIRBY ORDERED FOR THE PATIENT TO BE PLACED IN A RIVAS VEST RESTRAINT.
[2020-11-18 00:07] LABS: Alanine Aminotransfer (ALT/SGP 30 U/L (12-78); Albumin, Blood 3.5 g/dL (3.4-5.0); Albumin/Globulin Ratio 1.2 (0.8-1.8); Alk Phos 123 U/L (50-136); Anion Gap 3 mmol/L (6-16); Aspartate Aminotrans (AST/SGOT 8 U/L (12-37); Bilirubin, Total 0.2 mg/dL (0.1-1.0); Blood Urea Nitrogen 7 mg/dL (8-24); Bun/Creatinine Ratio 8.4 (12.0-20.0); CO2, Blood 22 mmol/L (21-32); Calcium, Blood 9.4 mg/dL (8.5-10.1); Chloride, Blood 116 mmol/L (98-108); Creatinine, Blood 0.84 mg/dL (0.40-1.00); Glomerular Filtration Rate >60 (60-); Glucose, Blood 114 mg/dL (70-99); Potassium, Blood 4.1 mmol/L (3.5-5.5); Sodium, Blood 141 mmol/L (136-145); Total Protein, Blood 6.5 g/dL (6.4-8.2)
[2020-11-18 00:10] LABS: Lithium 1.07 mmol/L (0.60-1.20)
--- NOTE | 2020-11-18 00:22 | NUR ---
POISON CONTROL CALLED FOR AN UPDATE ON THE PATIENT'S STATUS. AFTER REVIEWING MOST RECENT LITHIUM LEVEL, VITAL SIGNS, AND MENTAL STATUS THEY DETERMINED THAT NO ADITIONAL ORDERS WOULD BE REQUIRED FOR THE PATIENT HER LITHIUM LEVELS WERE RESPONDING WELL TO TREATMENT.
[2020-11-18 03:31] LABS: BASOPHILS ABSOLUTE AUTO 0.12 K/mm3 (0.00-0.23); BASOPHILS PERCENT AUTO 1 % (0-2); EOSINOPHILS ABSOLUTE AUTO 0.16 K/mm3 (0.00-0.68); EOSINOPHILS PERCENT AUTO 1 % (0-6); Hematocrit 37.2 % (33.0-51.0); IMMATURE GRAN ABSOLUTE AUTO 0.11 K/mm3 (0.00-0.10); IMMATURE GRAN PERCENT AUTO 1 % (0-1); LYMPHOCYTES ABSOLUTE AUTO 2.63 K/mm3 (0.84-5.20); LYMPHOCYTES PERCENT AUTO 18 % (21-46); MONOCYTES ABSOLUTE AUTO 1.81 K/mm3 (0.16-1.47); MONOCYTES PERCENT AUTO 12 % (4-13); Mean Corpuscular HGB 31.2 pg (26.0-34.0); Mean Corpuscular HGB Conc 32.3 g/dL (31.5-36.5); Mean Corpuscular Volume 97 fL (80-100); Mean Platelet Volume 10.3 fL (9.1-12.4); NEUTROPHILS ABSOLUTE AUTO 10.06 K/mm3 (1.96-9.15); NEUTROPHILS PERCENT AUTO 68 % (41-73); Platelet Count 306 K/mm3 (150-400); RDW Coefficient Variation 12.7 % (11.7-14.2); RDW Standard Deviation 44.8 fL (35.1-46.3); Red Blood Cell Count 3.85 M/mm3 (3.80-5.20); White Blood Cell Count 14.89 K/mm3 (4.00-11.30)
[2020-11-18 03:45] LABS: Alanine Aminotransfer (ALT/SGP 30 U/L (12-78); Albumin, Blood 3.6 g/dL (3.4-5.0); Albumin/Globulin Ratio 1.2 (0.8-1.8); Alk Phos 127 U/L (50-136); Anion Gap 3 mmol/L (6-16); Aspartate Aminotrans (AST/SGOT 9 U/L (12-37); Bilirubin, Total 0.2 mg/dL (0.1-1.0); Blood Urea Nitrogen 7 mg/dL (8-24); Bun/Creatinine Ratio 8.8 (12.0-20.0); CO2, Blood 21 mmol/L (21-32); Calcium, Blood 9.4 mg/dL (8.5-10.1); Chloride, Blood 117 mmol/L (98-108); Creatinine, Blood 0.79 mg/dL (0.40-1.00); Globulin, Blood 3.1 g/dL (2.2-4.0); Glomerular Filtration Rate >60 (60-); Glucose, Blood 100 mg/dL (70-99); Potassium, Blood 4.4 mmol/L (3.5-5.5); Sodium, Blood 141 mmol/L (136-145); Total Protein, Blood 6.7 g/dL (6.4-8.2)
--- NOTE | 2020-11-18 06:19 | NUR ---
SHIFT SUMMARY PATIENT ALERT AND ORIENTED TO SELF ONLY. CONTINUES TO BE VERY CONFUSED AND WEAK. PATIENT HAD NO COMPLAINTS OF PAIN OR SHORTNESS OF BREATH. RIVAS VEST IN PLACE A SAFETY MEASURE TO PREVENT FALLS DUE TO HER WEAKNESS AND CONFUSION. IV PATENT AND INFUSING. BED IN LOWEST POSITION WITH WHEELS LOCKED AND ALARM ON. CALL LIGHT WITHIN REACH. REPORT GIVEN TO ONCOMING RN.
[2020-11-18 07:43] LABS: Alanine Aminotransfer (ALT/SGP 30 U/L (12-78); Albumin, Blood 3.4 g/dL (3.4-5.0); Albumin/Globulin Ratio 1.3 (0.8-1.8); Alk Phos 123 U/L (50-136); Anion Gap 4 mmol/L (6-16); Aspartate Aminotrans (AST/SGOT 9 U/L (12-37); Bilirubin, Total 0.3 mg/dL (0.1-1.0); Blood Urea Nitrogen 7 mg/dL (8-24); Bun/Creatinine Ratio 8.7 (12.0-20.0); CO2, Blood 20 mmol/L (21-32); Calcium, Blood 9.2 mg/dL (8.5-10.1); Chloride, Blood 118 mmol/L (98-108); Globulin, Blood 2.6 g/dL (2.2-4.0); Glomerular Filtration Rate >60 (60-); Glucose, Blood 105 mg/dL (70-99); Potassium, Blood 4.1 mmol/L (3.5-5.5); Sodium, Blood 142 mmol/L (136-145)
[2020-11-18 11:23] LABS: Source, Urine Catheter
[2020-11-18 11:26] LABS: Bilirubin, Urine Neg (Neg); Blood, Urine Neg (Neg); Glucose Qualitative, Urine Neg (Neg); Ketones, Urine 3+ (Neg); Ketones, Urine 4+ (Neg); Leukocyte Esterase, Urine Neg (Neg); Nitrite, Urine Neg (Neg); Protein, Urine Neg (Neg); Urobilinogen, Urine NORM (Normal)
[2020-11-18 11:28] LABS: Color, Urine Yellow (P-Yellow)
[2020-11-18 11:29] LABS: Appearance, Urine Clear (Clear); Color, Urine Yellow (P-Yellow)
[2020-11-18] MEDS ORDERED: QUET200 PO (11:42)
[2020-11-18] MEDS ORDERED: PROP60 PO (11:45)
[2020-11-18] MEDS ORDERED: Lisinopril2.5 MG PO (11:49)
[2020-11-18 11:56] LABS: Alanine Aminotransfer (ALT/SGP 31 U/L (12-78); Albumin, Blood 3.8 g/dL (3.4-5.0); Albumin/Globulin Ratio 1.1 (0.8-1.8); Alk Phos 139 U/L (50-136); Anion Gap 8 mmol/L (6-16); Aspartate Aminotrans (AST/SGOT 9 U/L (12-37); Bilirubin, Total 0.3 mg/dL (0.1-1.0); Blood Urea Nitrogen 7 mg/dL (8-24); Bun/Creatinine Ratio 8.8 (12.0-20.0); CO2, Blood 18 mmol/L (21-32); Calcium, Blood 9.5 mg/dL (8.5-10.1); Chloride, Blood 115 mmol/L (98-108); Globulin, Blood 3.4 g/dL (2.2-4.0); Glomerular Filtration Rate >60 (60-); Glucose, Blood 103 mg/dL (70-99); Potassium, Blood 4.2 mmol/L (3.5-5.5); Sodium, Blood 141 mmol/L (136-145); Total Protein, Blood 7.2 g/dL (6.4-8.2)
--- NOTE | 2020-11-18 15:32 | NUR ---
pt vomiting at bedside. pt not eating excessiveeye blinking and minimal verbal response. nursing called update physican on symptoms iv lelo added. needs to tranfer to another hospital he states pt stressed. Iban stated that her menses have canged and are more painfull.
[2020-11-18 15:53] LABS: Alanine Aminotransfer (ALT/SGP 31 U/L (12-78); Albumin, Blood 3.7 g/dL (3.4-5.0); Albumin/Globulin Ratio 1.1 (0.8-1.8); Alk Phos 140 U/L (50-136); Anion Gap 8 mmol/L (6-16); Aspartate Aminotrans (AST/SGOT 7 U/L (12-37); Bilirubin, Total 0.4 mg/dL (0.1-1.0); Blood Urea Nitrogen 7 mg/dL (8-24); Bun/Creatinine Ratio 8.4 (12.0-20.0); CO2, Blood 18 mmol/L (21-32); Calcium, Blood 9.6 mg/dL (8.5-10.1); Chloride, Blood 114 mmol/L (98-108); Creatinine, Blood 0.83 mg/dL (0.40-1.00); Globulin, Blood 3.5 g/dL (2.2-4.0); Glomerular Filtration Rate >60 (60-); Glucose, Blood 102 mg/dL (70-99); Potassium, Blood 3.9 mmol/L (3.5-5.5); Sodium, Blood 140 mmol/L (136-145); Total Protein, Blood 7.2 g/dL (6.4-8.2)
[2020-11-18 19:42] LABS: Alanine Aminotransfer (ALT/SGP 30 U/L (12-78); Albumin, Blood 3.6 g/dL (3.4-5.0); Albumin/Globulin Ratio 1.1 (0.8-1.8); Alk Phos 131 U/L (50-136); Anion Gap 7 mmol/L (6-16); Aspartate Aminotrans (AST/SGOT 9 U/L (12-37); Bilirubin, Total 0.3 mg/dL (0.1-1.0); Blood Urea Nitrogen 8 mg/dL (8-24); Bun/Creatinine Ratio 9.9 (12.0-20.0); CO2, Blood 18 mmol/L (21-32); Calcium, Blood 9.6 mg/dL (8.5-10.1); Chloride, Blood 117 mmol/L (98-108); Creatinine, Blood 0.81 mg/dL (0.40-1.00); Globulin, Blood 3.3 g/dL (2.2-4.0); Glomerular Filtration Rate >60 (60-); Glucose, Blood 102 mg/dL (70-99); Potassium, Blood 4.1 mmol/L (3.5-5.5); Sodium, Blood 142 mmol/L (136-145); Total Protein, Blood 6.9 g/dL (6.4-8.2)
--- NOTE | 2020-11-18 19:49 | NUR ---
SHIFT SUMMARY: NO ACUTE CHANGES TO REPORT THIS SHIFT. PT ALERT; ORIENTED TO SELF AND FAMILY; COOPERATIVE WITH CARE. NO C/O PAIN/PT IN NO APPARENT DISTRESS. TELE IN PLACE; SR 80-90s. HEAD CT THIS SHIFT; AWAITING RESULTS. URINE SAMPLE SENT THIS SHIFT. FLUIDS CONTINUING. REPORT GIVEN TO ONCOMING RN.
--- NOTE | 2020-11-19 04:39 | NUR ---
SHIFT SUMMARY: PT DROWSY IN BEGINNING OF SHIFT AND UNABLE TO ANSWER MOST OF QUESTIONS. PT WOULD OCC RESPOND WITH ONE WORD ANSWERS BUT APPEARED TO HAVE A DIFFICULT TIME FORMULATING WORDS. PT NOW MORE ALERT AND INTERACTIVE WITH STAFF. SMILING AND SPEAKING IN SENTENCES. PT DIFFICULT TO UNDERSTAND AT TIMES SHE CONTINUES TO HAVE SLURRED SPEECH. PT ALERT TO SELF AND FAMILY. PT TALKING ABOUT THE 4 CATS SHE HAS AT HOME THIS MORNING. CURRENTLY VISITNG WITH SIGNIFICANT OTHER WHO IS AT BEDSIDE. PT HAS GENERALIZED WEAKNESS THROUGHOUT. UNABLE TO MOVE LEGS OR WIGGLE TOES. PT ABLE TO SLIGHTLY RAISE ARMS. WIGGLES FINGERS. PT REQUIRING MAX ASSISTANCE FOR ADL'S. INCONTINENT OF URINE. WEIGHING ATTENDS PER ORDERS. PT RESTING MOST OF SHIFT. CALM AND COOPERATIVE WITH CARE. PLAN FOR PT/OT TODAY.
[2020-11-19 05:18] LABS: BASOPHILS PERCENT AUTO 1 % (0-2); EOSINOPHILS ABSOLUTE AUTO 0.15 K/mm3 (0.00-0.68); EOSINOPHILS PERCENT AUTO 1 % (0-6); Hemoglobin 11.8 g/dL (11.5-16.0); IMMATURE GRAN PERCENT AUTO 1 % (0-1); LYMPHOCYTES ABSOLUTE AUTO 2.15 K/mm3 (0.84-5.20); LYMPHOCYTES PERCENT AUTO 19 % (21-46); MONOCYTES PERCENT AUTO 11 % (4-13); Mean Corpuscular HGB 30.5 pg (26.0-34.0); Mean Corpuscular HGB Conc 31.9 g/dL (31.5-36.5); Mean Corpuscular Volume 96 fL (80-100); Mean Platelet Volume 10.6 fL (9.1-12.4); NEUTROPHILS ABSOLUTE AUTO 7.85 K/mm3 (1.96-9.15); NEUTROPHILS PERCENT AUTO 67 % (41-73); Platelet Count 341 K/mm3 (150-400); RDW Coefficient Variation 13.2 % (11.7-14.2); RDW Standard Deviation 45.7 fL (35.1-46.3); Red Blood Cell Count 3.87 M/mm3 (3.80-5.20); White Blood Cell Count 11.65 K/mm3 (4.00-11.30)
[2020-11-19 05:46] LABS: Alanine Aminotransfer (ALT/SGP 27 U/L (12-78); Albumin, Blood 3.3 g/dL (3.4-5.0); Alk Phos 126 U/L (50-136); Anion Gap 7 mmol/L (6-16); Aspartate Aminotrans (AST/SGOT 8 U/L (12-37); Bilirubin, Total 0.2 mg/dL (0.1-1.0); Blood Urea Nitrogen 8 mg/dL (8-24); CO2, Blood 19 mmol/L (21-32); Calcium, Blood 9.2 mg/dL (8.5-10.1); Chloride, Blood 115 mmol/L (98-108); Globulin, Blood 3.2 g/dL (2.2-4.0); Glomerular Filtration Rate >60 (60-); Glucose, Blood 102 mg/dL (70-99); Potassium, Blood 3.8 mmol/L (3.5-5.5); Sodium, Blood 141 mmol/L (136-145); Total Protein, Blood 6.5 g/dL (6.4-8.2)
[2020-11-19 12:00] LABS: Lithium 1.03 mmol/L (0.60-1.20)
--- NOTE | 2020-11-19 13:23 | NUR ---
Pt resting in bed upon arrival. Pt appears confused as evidenced by her statement "I used to like you". Pt denies pain and dyspnea at this time. Assisted Pt with a drink of water per her request. Pt states "I can't cheat on my fiance". Pt requested this RN to leave. Ended visist per Pt's request. Spoke with ST Cutler and discussed case. Pt currently experiencing significant cognitive impairment. At base line Pt has mild to moderate intermittent confusion. Pt would benefit from placement to adult foster home and a payee. Spoke with Gisela Skaggs and discussed case. Relayed ST's concerns. Palliative Care will remain available.
[2020-11-19] MEDS ORDERED: FAMO20 PO (14:37)
[2020-11-19] MEDS ORDERED: MONT10T PO (14:39)
--- NOTE | 2020-11-19 14:39 | NUR ---
CONTACTED PHARMACY FOR MEDICATION LIST AND MED REC, ALSO VERIFIED WITH THE MOTHER.
--- NOTE | 2020-11-19 17:18 | NUR ---
SHIFT SUMMARRY PT ALERT, BUT SLOW TO RESPOND R/T SLURRED SPEECH, SOMETIMES HARD TO UNDERSTAND. PT HAD SPEECH EVAL TODAY. NO APPETITE. BEDREST FOR NOW, VERY WEAK. PT VOMITED THIS AM X1; MEDICATER PER EMAR. 2P MAX ASSIST. ON TELE NSR. ON RA. DENIES ANY PAIN, VERY EMOTIONAL AND CRYING AT TIMES. UPDATED THE MOM OF THE PT ON THE PHONE. DISCUSSED WITH THE POISON CONTROL AND UHA ON THE PHONE. BED IS IN THE LOWEST POSITION AND CALL LIGHT WITHIN REACH
[2020-11-20 04:34] LABS: BASOPHILS PERCENT AUTO 1 % (0-2); EOSINOPHILS ABSOLUTE AUTO 0.32 K/mm3 (0.00-0.68); EOSINOPHILS PERCENT AUTO 3 % (0-6); Hematocrit 39.2 % (33.0-51.0); Hemoglobin 12.9 g/dL (11.5-16.0); IMMATURE GRAN ABSOLUTE AUTO 0.11 K/mm3 (0.00-0.10); IMMATURE GRAN PERCENT AUTO 1 % (0-1); LYMPHOCYTES ABSOLUTE AUTO 2.47 K/mm3 (0.84-5.20); LYMPHOCYTES PERCENT AUTO 24 % (21-46); MONOCYTES ABSOLUTE AUTO 1.12 K/mm3 (0.16-1.47); MONOCYTES PERCENT AUTO 11 % (4-13); Mean Corpuscular HGB 31.4 pg (26.0-34.0); Mean Corpuscular HGB Conc 32.9 g/dL (31.5-36.5); Mean Corpuscular Volume 95 fL (80-100); Mean Platelet Volume 10.7 fL (9.1-12.4); NEUTROPHILS ABSOLUTE AUTO 6.14 K/mm3 (1.96-9.15); NEUTROPHILS PERCENT AUTO 60 % (41-73); Platelet Count 275 K/mm3 (150-400); RDW Coefficient Variation 13.6 % (11.7-14.2); RDW Standard Deviation 47.4 fL (35.1-46.3); Red Blood Cell Count 4.11 M/mm3 (3.80-5.20); White Blood Cell Count 10.26 K/mm3 (4.00-11.30)
[2020-11-20 04:57] LABS: Alanine Aminotransfer (ALT/SGP 30 U/L (12-78); Albumin, Blood 3.4 g/dL (3.4-5.0); Albumin/Globulin Ratio 1.1 (0.8-1.8); Alk Phos 119 U/L (50-136); Anion Gap 5 mmol/L (6-16); Aspartate Aminotrans (AST/SGOT 14 U/L (12-37); Bilirubin, Total 0.2 mg/dL (0.1-1.0); Blood Urea Nitrogen 10 mg/dL (8-24); CO2, Blood 23 mmol/L (21-32); Calcium, Blood 9.5 mg/dL (8.5-10.1); Chloride, Blood 115 mmol/L (98-108); Creatinine, Blood 0.77 mg/dL (0.40-1.00); Globulin, Blood 3.2 g/dL (2.2-4.0); Glomerular Filtration Rate >60 (60-); Glucose, Blood 121 mg/dL (70-99); Potassium, Blood 3.9 mmol/L (3.5-5.5); Sodium, Blood 143 mmol/L (136-145); Total Protein, Blood 6.6 g/dL (6.4-8.2)
[2020-11-20 07:24] LABS: Lithium <0.20 mmol/L (0.60-1.20)
--- NOTE | 2020-11-20 07:53 | NUR ---
Archana slept quite well overnight waking twice to use bedpan and once for incontinence. She was more alert this morning and speech was slightly more clear in conversation. She did have a fairly substantial clear mucus emesis after a few sips of water towards the end of the night. No complaint if pain or discomfort. Zofran ODT as well as 0.5mg ativan given for relief of anxiety and nausea. Patient's S.O. Conor has spoken to her twice this shift which has given her some semblance of peace.
--- NOTE | 2020-11-20 17:50 | NUR ---
SHIFT SUMMARY PT ALERT AT TIMES, AND CONFUSED AT TIMES. GARBLED SPEECH AT TIMES; DR AWARE AND INFORMED ABOUT THE PT BEING CONFUSED AT LUNCH TIME TODAY. MONITOR PT PER . PT INCONTINENT AND DOES NOT USE CALL LIGHTS. NEEDS TO BE REMINDED AND ORIENTED AT TIMES. PT IS ON SEIZURE PRECAUTIONS. PT VOMITED THIS AM AND MEDICATED PER EMAR. NO CP OR DISCOMFORT. NSR ON TELE. ON RA. PT SISTER AT BEDSIDE DURING VISITING HOURS AND PT ABLE TO HOLD CONVERSATION AND ALERT. SATS WNL. DISCUSSED WITH POISON CONTROL ABOUT THE PT. PT BP HIGH THIS AM; MEDICATER PER EMAR. BP NOW STABLE. BED IS IN THE LOWEST POSITION AND CALL LIGHT WITHIN REACH
[2020-11-21 04:52] LABS: Lithium 0.64 mmol/L (0.60-1.20)
[2020-11-21 04:54] LABS: BASOPHILS ABSOLUTE AUTO 0.07 K/mm3 (0.00-0.23); BASOPHILS PERCENT AUTO 1 % (0-2); EOSINOPHILS ABSOLUTE AUTO 0.45 K/mm3 (0.00-0.68); EOSINOPHILS PERCENT AUTO 4 % (0-6); Hematocrit 37.6 % (33.0-51.0); Hemoglobin 12.3 g/dL (11.5-16.0); IMMATURE GRAN ABSOLUTE AUTO 0.09 K/mm3 (0.00-0.10); IMMATURE GRAN PERCENT AUTO 1 % (0-1); LYMPHOCYTES ABSOLUTE AUTO 2.98 K/mm3 (0.84-5.20); LYMPHOCYTES PERCENT AUTO 23 % (21-46); MONOCYTES ABSOLUTE AUTO 1.23 K/mm3 (0.16-1.47); MONOCYTES PERCENT AUTO 10 % (4-13); Mean Corpuscular HGB 31.3 pg (26.0-34.0); Mean Corpuscular HGB Conc 32.7 g/dL (31.5-36.5); Mean Corpuscular Volume 96 fL (80-100); Mean Platelet Volume 10.1 fL (9.1-12.4); NEUTROPHILS PERCENT AUTO 63 % (41-73); Platelet Count 325 K/mm3 (150-400); RDW Coefficient Variation 14.1 % (11.7-14.2); Red Blood Cell Count 3.93 M/mm3 (3.80-5.20); White Blood Cell Count 12.82 K/mm3 (4.00-11.30)
[2020-11-21 05:04] LABS: Anion Gap 4 mmol/L (6-16); Blood Urea Nitrogen 10 mg/dL (8-24); CO2, Blood 26 mmol/L (21-32); Calcium, Blood 8.9 mg/dL (8.5-10.1); Chloride, Blood 114 mmol/L (98-108); Creatinine, Blood 0.77 mg/dL (0.40-1.00); Glomerular Filtration Rate >60 (60-); Glucose, Blood 112 mg/dL (70-99); Potassium, Blood 3.8 mmol/L (3.5-5.5); Sodium, Blood 144 mmol/L (136-145)
--- NOTE | 2020-11-21 07:48 | NUR ---
PATIENT CONFUSED AND FORGETFUL. DISORIENTED TO TIME AND SITUATION. VSS ON RA. DENIES PAIN. REPOSTIONED Q2HR. NO N/V OVERNIGHT. SLEEPING B/W CARE. INCONTINENT OF URINE.
--- NOTE | 2020-11-21 14:16 | NUR ---
DISCHARGE REVIEWED WITH PT. PT VERBALIZED UNDERSTANDING MEDS AND INST. IV PULLED INTACT. TELE REMOVED AND RETURNED. PT WHEELED TO DOOR AT 1415 BY AIDE. PT STATES HUSB HAS O2 IN CAR WAITING.
--- NOTE | 2020-11-21 16:33 | NUR ---
pt pleasant today. has been talking on phone most of day. presents as some confused. did have boyfriend in room much of am. has been compliant with care. no new concerns noted today. bed in low position, call lite in reach, calls approp. bed alarm on for safety
--- NOTE | 2020-11-21 18:37 | NUR ---
PT C/O HALLUCINATIONS. VISUAL. STATES THOUGHT THE SEIZURE PADS MAY HAVE HAD LEGS ON THEM. THEN THOUGHT A PIECE OF SALINE FLUSH PLASTIC WRAP ON FLOOR MAY HAVE BEEN GLASS AND WAS SMOKING. ASKED IF THIS IS A REGULAR OCCURANCE. STATES SOMETIMES WHEN SHE SMOKES POT. STATED THAT SHE SMOKES A LOT, AND REGULARLY. CALLED DR TO UPDATE, NO ANSWER. WILL PASS ON IN NITE REPORT.
--- NOTE | 2020-11-22 05:35 | NUR ---
PHOTOCOMPOSING KEYBOARD OPERATOR SUMMARY PT A/O X3 WITH FORGETFULNESS. SLEPT WELL TONIGHT. DENIES PAIN, NAUSEA, SOB. ROOM AIR MAINTAINING GOOD 02 SATS. INCONTIENT/ CONTINENT TO BLADDER. NON SENSICAL SPEECH AT TIMES. TELE RUNNING NSR IN THE 60'S TO 70'S PER DE ICER KIT ASSEMBLER. NO ACUTE CHANGES. CALL LIGHT WITHIN REACH, BED ALARM ON.
--- NOTE | 2020-11-22 18:29 | NUR ---
SHIFT SUMMARY. A&OX3, INTERMITTENT FORGETFULNESS ALTHOUGH REORIENTS EASILY. PT DOES FORGET LIMITATIONS AT TIMES, BED AND CHAIR ALARM UTILIZED FOR SAFETY. PT DENIES PAIN, SOB, N/V. PT PARTICIPATED WITH PHYSICAL THERAPY AND TOLERATED WELL. PT'S MOTHER GIVEN UPDATE ON PT'S STATUS AFTER VERBAL CONSENT RECIEVED FROM PT. PT RECIEVED SHOWER TODAY. TELE D/C'D BY DR. SWANN THIS AM. PT WITH GOOD PO INTAKE THIS SHIFT, IV FLUIDS D/C'D PER T/O DR. SWANN. PT SHOWERED THIS AM. NO OTHER CHANGES OR CONCERNS.
--- NOTE | 2020-11-23 05:00 | NUR ---
COMMERCIAL MORTGAGE BROKER SUMMARY PT A/O X3-4 WITH FORGETFULNESS. PT DENIES PAIN, NAUSEA, SOB. DOES NOT USE CALL LIGHT APPROPRIATELY. BED ALARM ON. VSS. SLEPT WELL TONIGHT. REQUIRES 1 ASSIST WITH FWW TO USE BATHROOM. INCONTIENT/CONTIENT TO BLADDER. NO ACUTE CHANGES. WILL CONTINUE TO MONITOR.
--- NOTE | 2020-11-23 18:08 | NUR ---
SHIFT SUMMARY. PT'S STRENGTH WITH AMBULATION HAS IMPROVED TODAY COMPARED TO YESTERDAY. AMBULATING WITHOUT WALKER TO BATHROOM PRACTICED TODAY, PT STILL ATTEMPTS TO GRAB ON TO FURNITURE WHEN FWW IS NOT IN PLACE. PT DENIES PAIN, N/V, SOB.
--- NOTE | 2020-11-24 04:31 | NUR ---
ENGLISH LANGUAGE ARTS TEACHER SUMMARY PT A/O X3-4 WITH FORGETFULNESS. PT EXPRESSED TO THIS RN SHE IS READY TO CHANGE HER LIFESTYLE. PT TALKED ABOUT HER 18 YEAR OLD SON AND WANTS TO BETTER HERSELF. AMBULATED WITH 1 ASSIST WITH FWW. INCONTIENT/CONTIENT TO BLADDER, SLEPT WELL TONIGHT. DENIES PAIN, NAUSEA, SOB. ROOM AIR, MAINTAINING GOOD O2 SATS. NO COMPLAINTS. NO ACUTE CHANGES, VSS. BED ALARM ON, CALL LIGHT WITHIN REACH, WILL CONTINUE TO MONITOR.
[2020-11-24 05:29] LABS: Lithium 1.24 mmol/L (0.60-1.20)
[2020-11-24 11:53] LABS: Source, Urine Clean Catch
[2020-11-24 11:56] LABS: Appearance, Urine Hazy (Clear); Bilirubin, Urine Neg (Neg); Blood, Urine 5+ (Neg); Color, Urine Yellow (P-Yellow); Glucose Qualitative, Urine Neg (Neg); Ketones, Urine Neg (Neg); Leukocyte Esterase, Urine 3+ (Neg); Nitrite, Urine Neg (Neg); Protein, Urine 2+ (Neg); Urobilinogen, Urine NORM (Normal)
[2020-11-24 12:27] LABS: White Blood Cells, Urine TNTC /hpf (0-5)
[2020-11-24 12:29] LABS: Bacteria Many /hpf; Squamous Epithelial Cells Few /hpf (Few)
--- NOTE | 2020-11-24 13:34 | NUR ---
BOWEL CARE DR. ANN NOTIFIED THAT PT HAS NOT HAD A BM THIS HOSPITAL STAY. PT STATES SHE DOES NOT HAVE ABD PAIN AND THAT SHE IS PASSING GAS. DR. ANN STATED SHE WILL ORDER BOWEL CARE.
--- NOTE | 2020-11-24 18:03 | NUR ---
SHIFT SUMMARY PATIENT ALERT AND ORIENTATED X3-4 WITH FORGETFULNESS. PATIENT EXPRESSED HER DESIRE TO CHANGE HER LIFESTYLE TO POSITIVE. PATIENT ABULATES WITH 1 PERSON ASSIST USING FWW TO BATHROOM AND CHAIR. DENIES NAUSEA OR NAUSEA. MILD HEADACHE OFF AND ON. BED AND CHAIR ALARM ARE ON. PATIENTS STRENGTH HAS IMPROVED DURING SHIFT. PLAN FOR DISCHARGE TOMORROW PENDING PLACEMENT. NO OTHER ACUTE CHANGES THIS SHIFT. VITAL SIGNS REVIEWED.
--- NOTE | 2020-11-24 18:11 | NUR ---
PSYCHIATRIC SOCIAL WORKER SUPERVISOR DOC REVIEW THIS RN ASSESSED THE PT. THIS RN REVIEWED STUDENT'S DOCUMENTATION AND ASSESSEMENT AND AGREES WITH THEM.
--- NOTE | 2020-11-25 04:34 | NUR ---
SHIFT SUMMARY- PT. A&O, FORGETFUL. ABLE TO AMBULATE 1 ASSIST W/WALKER. PT. IMPULSIVE AT TIMES. BED ALARM ON FOR SAFETY. HAD NO COMPLAINTS DURING THE NIGHT. SLEPT T/O THE NIGHT, NO APPARENT DISTRESS NOTED. CALL LIGHT WITHIN REACH. WILL CONT TO MONITOR.
--- NOTE | 2020-11-25 18:09 | NUR ---
SHIFT SUMMARY PATIENT DENIES PAIN, NUASEA, AND SHORTNESS OF BREATH. PATIENT UP SBA W/FWW TO BR. PATIENT WORKED WITH PT AND OT. PATIENT HAS AGREED TO SNF DISCHARGE BUT IS APPREHENSIVE ABOUT IT. EATING AND DRINKING WELL. PLEASANT AND COOPERATIVE WITH CARE.
--- NOTE | 2020-11-26 07:15 | NUR ---
SHIFT SUMMARY PT IS A 45 Y/O FEMALE, ADMITTED FOR LITHIUM OVERDOSE AND CURRENTLY AWAITING REHAB PLACEMENT. PT IS A&O X 3, FORGETFUL AND IMPULSIVE AT TIMES. NO C/O ACUTE PAIN, NAUSEA OR SOB. VITAL SIGNS STABLE. NO ACUTE CHANGES IN PT CONDITION NOTED. WILL CONTINUE TO MONITOR AND TREAT PER EMAR UNTIL HAND OFF TO DAY SHIFT RN.
--- NOTE | 2020-11-26 16:36 | NUR ---
PATIENT LEFT AMA PATIENT REQUESTED TO LEAVE AMA. PATIENT ADVISED THAT GOING HOME WITH OUT REHAB WAS AN UNSAFE CHOICE. PATIENT STATES SHE UNDERSTANDS BUT DOES NOT WANT TO WAIT FOR REHAB PLACEMENT. PER PATIENT HER BOYFRIEND IS SENDING A TAXI TO PICK HER UP AND SHE WOULD LIKE TO WAIT DOWNSTAIRS FOR TAXI. CARE MANAGEMENT INFORMED, DOCTOR INFORMED, HOME HEALTH ORDERED. IV REMOVED. PATIENT TAKEN TO WAIT FOR TAXI VIA WHEELCHAIR.
[2020-12-01] MEDS ORDERED: MAGCIT300 PO (12:49)
== END 2020-11-26 16:43 | disposition left against medical advice (07) | DRG 917 ==
LOC: ER 11:20 → MEDS 11:21
PROVIDERS: Emergency Medicine; Family Medicine; Student in an Organized Health Care Education/Training Program; ADMIT Internal Medicine
DX: T43.592A Poisoning by other antipsychotics and neuroleptics, intentional self-harm, initial encounter (principal); G92 Toxic encephalopathy; N17.9 Acute kidney failure, unspecified; N39.0 Urinary tract infection, site not specified; R47.81 Slurred speech; E87.6 Hypokalemia; K59.00 Constipation, unspecified; I10 Essential (primary) hypertension; J45.909 Unspecified asthma, uncomplicated; F41.9 Anxiety disorder, unspecified; F31.9 Bipolar disorder, unspecified; Z88.8 Allergy status to other drugs, medicaments and biological substances; Z91.048 Other nonmedicinal substance allergy status; Z91.09 Other allergy status, other than to drugs and biological substances; Z91.14 Patient's other noncompliance with medication regimen; Z79.899 Other long term (current) drug therapy
CPT/HCPCS: 36415; 70450; 80048; 80053; 80178; 81001; 81003; 81025; 85025; 87077; 87086; 87186; 92507; 92523; 92526; 92610; 93005; 93010; 94760; 96365; 96372; 97110; 97112; 97116; 97129; 97162; 97166; 97530; 97535; 99285-25; A9270; G0378; G0480; J0360; J0696; J1650; J2060; J2405; J3480; J7030; J7121

== ENCOUNTER 2020-12-01 16:49 | Inpatient (IN) | payer OTHER ==
[~2020-12-01] VITALS: Ht 170.2 cm; Wt 96.9 kg
[~2020-12-01 16:49] MED LIST changes: +ALBU90OI INH; +FAMO20 PO; +Lisinopril2.5 MG PO; +MAGCIT300 PO; +MONT10T PO; +OMEP20ER PO; +PROP60 PO; +QUET200 PO; +VRAYLAR1.5 MG PO
[2020-12-01 17:27] LABS: BASOPHILS ABSOLUTE AUTO 0.16 K/mm3 (0.00-0.23); BASOPHILS PERCENT AUTO 1 % (0-2); EOSINOPHILS ABSOLUTE AUTO 0.16 K/mm3 (0.00-0.68); EOSINOPHILS PERCENT AUTO 1 % (0-6); Hemoglobin 12.8 g/dL (11.5-16.0); IMMATURE GRAN ABSOLUTE AUTO 0.49 K/mm3 (0.00-0.10); IMMATURE GRAN PERCENT AUTO 3 % (0-1); LYMPHOCYTES PERCENT AUTO 13 % (21-46); MONOCYTES PERCENT AUTO 8 % (4-13); Mean Corpuscular HGB 31.1 pg (26.0-34.0); Mean Corpuscular HGB Conc 32.8 g/dL (31.5-36.5); Mean Corpuscular Volume 95 fL (80-100); Mean Platelet Volume 9.7 fL (9.1-12.4); NEUTROPHILS ABSOLUTE AUTO 11.78 K/mm3 (1.96-9.15); NEUTROPHILS PERCENT AUTO 74 % (41-73); Platelet Count 409 K/mm3 (150-400); RDW Coefficient Variation 13.1 % (11.7-14.2); RDW Standard Deviation 45.8 fL (35.1-46.3); Red Blood Cell Count 4.12 M/mm3 (3.80-5.20); White Blood Cell Count 15.99 K/mm3 (4.00-11.30)
[2020-12-01 17:47] LABS: Alanine Aminotransfer (ALT/SGP 28 U/L (12-78); Albumin, Blood 3.9 g/dL (3.4-5.0); Alk Phos 121 U/L (50-136); Anion Gap 8 mmol/L (6-16); Aspartate Aminotrans (AST/SGOT 9 U/L (12-37); Bilirubin, Total 0.4 mg/dL (0.1-1.0); Blood Urea Nitrogen 16 mg/dL (8-24); Bun/Creatinine Ratio 13.4 (12.0-20.0); CO2, Blood 21 mmol/L (21-32); Calcium, Blood 9.8 mg/dL (8.5-10.1); Chloride, Blood 107 mmol/L (98-108); Creatinine, Blood 1.19 mg/dL (0.40-1.00); Ethanol (Alcohol), Blood, Med <3 mg/dL; Glomerular Filtration Rate 52 (60-); Glucose, Blood 111 mg/dL (70-99); Potassium, Blood 3.7 mmol/L (3.5-5.5); Sodium, Blood 136 mmol/L (136-145); Total Protein, Blood 7.9 g/dL (6.4-8.2)
[2020-12-01 18:33] LABS: Lithium >9.00 mmol/L (0.60-1.20)
[2020-12-01 18:50] LABS: International Normalized Ratio 0.98; Prothrombin Time Results 10.6 Sec (9.7-11.5)
[2020-12-01 19:41] LABS: Source, Urine Clean Catch
[2020-12-01 19:47] LABS: Appearance, Urine Clear (Clear); Bilirubin, Urine Neg (Neg); Blood, Urine Neg (Neg); Color, Urine Yellow (P-Yellow); Glucose Qualitative, Urine Neg (Neg); Ketones, Urine 2+ (Neg); Leukocyte Esterase, Urine Neg (Neg); Nitrite, Urine Neg (Neg); Protein, Urine 2+ (Neg); Urobilinogen, Urine NORM (Normal)
[2020-12-01 19:50] LABS: Lithium 3.32 mmol/L (0.60-1.20)
[2020-12-01 19:55] LABS: Bacteria Few /hpf; Red Blood Cells, Urine 0-2 /hpf (0-2); Squamous Epithelial Cells Few /hpf (Few)
[2020-12-01 19:58] LABS: U Amphetamine Screen Not Detected; U Barbituate Screen Not Detected; U Benzodiazapine Screen Not Detected; U Buprenorphine Screen Not Detected; U Cannabinoids Screen DETECTED; U Cocaine Screen Not Detected; U Methadone Screen Not Detected; U Methamphetamine Screen Not Detected; U Opiates Screen Not Detected; U Oxycodone Screen Not Detected; U Phencyclidine Screen Not Detected; U Propoxyphene Screen Not Detected
[2020-12-01 20:51] LABS: Albumin, Blood 3.4 g/dL (3.4-5.0); Anion Gap 3 mmol/L (6-16); Blood Urea Nitrogen 15 mg/dL (8-24); Bun/Creatinine Ratio 13.6 (12.0-20.0); CO2, Blood 25 mmol/L (21-32); Calcium, Blood 9.4 mg/dL (8.5-10.1); Chloride, Blood 107 mmol/L (98-108); Glomerular Filtration Rate 57 (60-); Glucose, Blood 88 mg/dL (70-99); Potassium, Blood 3.6 mmol/L (3.5-5.5); Sodium, Blood 135 mmol/L (136-145)
[2020-12-01 22:00] LABS: Lithium 2.64 mmol/L (0.60-1.20)
[2020-12-01 22:41] LABS: Salicylate <1.7 mg/dL (2.8-20.0)
[2020-12-01 22:44] LABS: Acetaminophen, Random <2.0 ug/mL (10.0-30.0)
[2020-12-02 00:36] LABS: Lithium 2.98 mmol/L (0.60-1.20)
[2020-12-02 03:10] LABS: BASOPHILS ABSOLUTE AUTO 0.12 K/mm3 (0.00-0.23); BASOPHILS PERCENT AUTO 1 % (0-2); EOSINOPHILS ABSOLUTE AUTO 0.16 K/mm3 (0.00-0.68); EOSINOPHILS PERCENT AUTO 1 % (0-6); Hematocrit 34.5 % (33.0-51.0); Hemoglobin 11.4 g/dL (11.5-16.0); IMMATURE GRAN ABSOLUTE AUTO 0.39 K/mm3 (0.00-0.10); IMMATURE GRAN PERCENT AUTO 3 % (0-1); LYMPHOCYTES ABSOLUTE AUTO 2.97 K/mm3 (0.84-5.20); LYMPHOCYTES PERCENT AUTO 21 % (21-46); MONOCYTES PERCENT AUTO 11 % (4-13); Mean Corpuscular HGB 31.3 pg (26.0-34.0); Mean Corpuscular Volume 95 fL (80-100); Mean Platelet Volume 9.5 fL (9.1-12.4); NEUTROPHILS ABSOLUTE AUTO 9.03 K/mm3 (1.96-9.15); NEUTROPHILS PERCENT AUTO 64 % (41-73); Platelet Count 326 K/mm3 (150-400); RDW Coefficient Variation 13.2 % (11.7-14.2); RDW Standard Deviation 45.9 fL (35.1-46.3); Red Blood Cell Count 3.64 M/mm3 (3.80-5.20); White Blood Cell Count 14.17 K/mm3 (4.00-11.30)
[2020-12-02 03:28] LABS: Albumin, Blood 3.3 g/dL (3.4-5.0); Bilirubin, Total 0.3 mg/dL (0.1-1.0); Calcium, Blood 8.9 mg/dL (8.5-10.1); Creatinine, Blood 1.08 mg/dL (0.40-1.00); Globulin, Blood 3.2 g/dL (2.2-4.0); Magnesium, Blood 2.5 mg/dL (1.6-2.4); Phosphorus, Blood 3.2 mg/dL (2.5-4.9); Potassium, Blood 3.6 mmol/L (3.5-5.5); Total Protein, Blood 6.5 g/dL (6.4-8.2)
[2020-12-02 03:53] LABS: Lithium 2.82 mmol/L (0.60-1.20)
[2020-12-02 11:15] LABS: Lithium 2.29 mmol/L (0.60-1.20)
[2020-12-02 15:03] LABS: Lithium 1.67 mmol/L (0.60-1.20)
[2020-12-03 03:30] LABS: BASOPHILS ABSOLUTE AUTO 0.12 K/mm3 (0.00-0.23); BASOPHILS PERCENT AUTO 1 % (0-2); EOSINOPHILS ABSOLUTE AUTO 0.05 K/mm3 (0.00-0.68); EOSINOPHILS PERCENT AUTO 0 % (0-6); Hematocrit 34.8 % (33.0-51.0); Hemoglobin 11.1 g/dL (11.5-16.0); IMMATURE GRAN ABSOLUTE AUTO 0.22 K/mm3 (0.00-0.10); IMMATURE GRAN PERCENT AUTO 2 % (0-1); LYMPHOCYTES PERCENT AUTO 18 % (21-46); MONOCYTES ABSOLUTE AUTO 1.24 K/mm3 (0.16-1.47); MONOCYTES PERCENT AUTO 10 % (4-13); Mean Corpuscular HGB 31.3 pg (26.0-34.0); Mean Corpuscular HGB Conc 31.9 g/dL (31.5-36.5); Mean Corpuscular Volume 98 fL (80-100); Mean Platelet Volume 9.4 fL (9.1-12.4); NEUTROPHILS ABSOLUTE AUTO 8.63 K/mm3 (1.96-9.15); NEUTROPHILS PERCENT AUTO 69 % (41-73); Platelet Count 327 K/mm3 (150-400); RDW Coefficient Variation 13.2 % (11.7-14.2); RDW Standard Deviation 47.6 fL (35.1-46.3); Red Blood Cell Count 3.55 M/mm3 (3.80-5.20); White Blood Cell Count 12.56 K/mm3 (4.00-11.30)
[2020-12-03 03:49] LABS: Magnesium, Blood 2.5 mg/dL (1.6-2.4)
[2020-12-03 03:52] LABS: Alanine Aminotransfer (ALT/SGP 21 U/L (12-78); Albumin, Blood 3.1 g/dL (3.4-5.0); Alk Phos 115 U/L (50-136); Anion Gap 4 mmol/L (6-16); Aspartate Aminotrans (AST/SGOT 8 U/L (12-37); Bilirubin, Total 0.2 mg/dL (0.1-1.0); Blood Urea Nitrogen 8 mg/dL (8-24); Bun/Creatinine Ratio 8.7 (12.0-20.0); CO2, Blood 21 mmol/L (21-32); Calcium, Blood 9.2 mg/dL (8.5-10.1); Chloride, Blood 122 mmol/L (98-108); Creatinine, Blood 0.92 mg/dL (0.40-1.00); Globulin, Blood 3.2 g/dL (2.2-4.0); Glomerular Filtration Rate >60 (60-); Glucose, Blood 105 mg/dL (70-99); Phosphorus, Blood 2.5 mg/dL (2.5-4.9); Potassium, Blood 4.6 mmol/L (3.5-5.5); Total Protein, Blood 6.3 g/dL (6.4-8.2)
[2020-12-03 03:53] LABS: Sodium, Blood 147 mmol/L (136-145)
[2020-12-03 04:01] LABS: Lithium 1.44 mmol/L (0.60-1.20)
[2020-12-03 12:56] LABS: Lithium 1.13 mmol/L (0.60-1.20)
[2020-12-04 03:33] LABS: Hematocrit 34.3 % (33.0-51.0); Hemoglobin 11.3 g/dL (11.5-16.0)
[2020-12-04 03:49] LABS: Albumin, Blood 3.2 g/dL (3.4-5.0); Anion Gap 5 mmol/L (6-16); Blood Urea Nitrogen 7 mg/dL (8-24); Bun/Creatinine Ratio 7.2 (12.0-20.0); CO2, Blood 21 mmol/L (21-32); Calcium, Blood 9.4 mg/dL (8.5-10.1); Chloride, Blood 118 mmol/L (98-108); Creatinine, Blood 0.97 mg/dL (0.40-1.00); Glomerular Filtration Rate >60 (60-); Glucose, Blood 143 mg/dL (70-99); Magnesium, Blood 2.3 mg/dL (1.6-2.4); Phosphorus, Blood 2.3 mg/dL (2.5-4.9); Potassium, Blood 3.9 mmol/L (3.5-5.5); Sodium, Blood 144 mmol/L (136-145)
[2020-12-04 03:54] LABS: Lithium 0.84 mmol/L (0.60-1.20)
[2020-12-05 04:45] LABS: Hematocrit 34.5 % (33.0-51.0); Hemoglobin 11.2 g/dL (11.5-16.0)
[2020-12-05 05:05] LABS: Albumin, Blood 3.3 g/dL (3.4-5.0); Anion Gap 7 mmol/L (6-16); Blood Urea Nitrogen 12 mg/dL (8-24); Bun/Creatinine Ratio 12.9 (12.0-20.0); CO2, Blood 21 mmol/L (21-32); Calcium, Blood 9.4 mg/dL (8.5-10.1); Chloride, Blood 116 mmol/L (98-108); Creatinine, Blood 0.93 mg/dL (0.40-1.00); Glomerular Filtration Rate >60 (60-); Glucose, Blood 137 mg/dL (70-99); Magnesium, Blood 2.3 mg/dL (1.6-2.4); Phosphorus, Blood 3.1 mg/dL (2.5-4.9); Potassium, Blood 3.7 mmol/L (3.5-5.5); Sodium, Blood 144 mmol/L (136-145)
[2020-12-06 08:21] LABS: Hematocrit 37.3 % (33.0-51.0); Hemoglobin 12.1 g/dL (11.5-16.0)
[2020-12-06 08:43] LABS: Albumin, Blood 3.6 g/dL (3.4-5.0); Anion Gap 5 mmol/L (6-16); Blood Urea Nitrogen 17 mg/dL (8-24); Bun/Creatinine Ratio 19.7 (12.0-20.0); CO2, Blood 23 mmol/L (21-32); Calcium, Blood 9.6 mg/dL (8.5-10.1); Chloride, Blood 114 mmol/L (98-108); Creatinine, Blood 0.86 mg/dL (0.40-1.00); Glomerular Filtration Rate >60 (60-); Glucose, Blood 109 mg/dL (70-99); Magnesium, Blood 2.6 mg/dL (1.6-2.4); Phosphorus, Blood 3.8 mg/dL (2.5-4.9); Potassium, Blood 4.1 mmol/L (3.5-5.5); Sodium, Blood 142 mmol/L (136-145)
[2020-12-07 05:01] LABS: BASOPHILS PERCENT AUTO 1 % (0-2); EOSINOPHILS PERCENT AUTO 4 % (0-6); Hematocrit 36.7 % (33.0-51.0); Hemoglobin 11.7 g/dL (11.5-16.0); IMMATURE GRAN ABSOLUTE AUTO 0.28 K/mm3 (0.00-0.10); IMMATURE GRAN PERCENT AUTO 3 % (0-1); LYMPHOCYTES PERCENT AUTO 27 % (21-46); MONOCYTES ABSOLUTE AUTO 0.72 K/mm3 (0.16-1.47); MONOCYTES PERCENT AUTO 7 % (4-13); Mean Corpuscular HGB 31.1 pg (26.0-34.0); Mean Corpuscular HGB Conc 31.9 g/dL (31.5-36.5); Mean Corpuscular Volume 98 fL (80-100); Mean Platelet Volume 10.5 fL (9.1-12.4); NEUTROPHILS PERCENT AUTO 60 % (41-73); Platelet Count 327 K/mm3 (150-400); RDW Coefficient Variation 14.7 % (11.7-14.2); RDW Standard Deviation 51.4 fL (35.1-46.3); Red Blood Cell Count 3.76 M/mm3 (3.80-5.20)
[2020-12-07 05:24] LABS: Alanine Aminotransfer (ALT/SGP 63 U/L (12-78); Albumin, Blood 3.2 g/dL (3.4-5.0); Anion Gap 3 mmol/L (6-16); Aspartate Aminotrans (AST/SGOT 30 U/L (12-37); Blood Urea Nitrogen 18 mg/dL (8-24); Bun/Creatinine Ratio 18.1 (12.0-20.0); CO2, Blood 26 mmol/L (21-32); Calcium, Blood 9.8 mg/dL (8.5-10.1); Chloride, Blood 114 mmol/L (98-108); Glomerular Filtration Rate >60 (60-); Glucose, Blood 94 mg/dL (70-99); Magnesium, Blood 2.6 mg/dL (1.6-2.4); Phosphorus, Blood 3.5 mg/dL (2.5-4.9); Potassium, Blood 4.2 mmol/L (3.5-5.5); Sodium, Blood 143 mmol/L (136-145)
[2020-12-07 05:26] LABS: Albumin/Globulin Ratio 0.9 (0.8-1.8); Alk Phos 105 U/L (50-136); Bilirubin, Total 0.3 mg/dL (0.1-1.0); Globulin, Blood 3.5 g/dL (2.2-4.0); Total Protein, Blood 6.7 g/dL (6.4-8.2)
[2020-12-08 04:33] LABS: Hematocrit 35.8 % (33.0-51.0); Hemoglobin 11.6 g/dL (11.5-16.0)
[2020-12-08 04:56] LABS: Albumin, Blood 3.1 g/dL (3.4-5.0); Anion Gap 5 mmol/L (6-16); Blood Urea Nitrogen 18 mg/dL (8-24); CO2, Blood 24 mmol/L (21-32); Calcium, Blood 9.4 mg/dL (8.5-10.1); Chloride, Blood 112 mmol/L (98-108); Glomerular Filtration Rate >60 (60-); Glucose, Blood 100 mg/dL (70-99); Magnesium, Blood 2.5 mg/dL (1.6-2.4); Phosphorus, Blood 3.8 mg/dL (2.5-4.9); Potassium, Blood 4.6 mmol/L (3.5-5.5); Sodium, Blood 141 mmol/L (136-145)
[2020-12-11] MEDS ORDERED: MIRALAX17 GM PO (12:07)
== END 2020-12-11 12:26 | disposition home or self-care (01) | DRG 917 ==
LOC: ER 16:49 → ICUW 16:50 → MEDS 22:50 → ICUW 22:51 → MEDS 12-04 13:30
PROVIDERS: Emergency Medicine; Family Medicine; Hospitalist; Internal Medicine Nephrology; Physician Assistant; ADMIT Internal Medicine
DX: T56.891A Toxic effect of other metals, accidental (unintentional), initial encounter (principal); G92 Toxic encephalopathy; F31.64 Bipolar disorder, current episode mixed, severe, with psychotic features; E87.0 Hyperosmolality and hypernatremia; E66.01 Morbid (severe) obesity due to excess calories; Z68.34 Body mass index [BMI] 34.0-34.9, adult; F17.210 Nicotine dependence, cigarettes, uncomplicated; F12.10 Cannabis abuse, uncomplicated; E86.9 Volume depletion, unspecified; R80.9 Proteinuria, unspecified; R31.29 Other microscopic hematuria; E88.09 Other disorders of plasma-protein metabolism, not elsewhere classified; D64.9 Anemia, unspecified; I10 Essential (primary) hypertension; K21.9 Gastro-esophageal reflux disease without esophagitis; R13.10 Dysphagia, unspecified; E83.41 Hypermagnesemia; Y92.9 Unspecified place or not applicable
CPT/HCPCS: 36415; 51702; 70450; 71045; 74018; 76770; 80053; 80069; 80178; 81001; 81025; 82947; 83735; 84100; 84132; 84295; 84484; 85014; 85018; 85025; 85610; 87086; 92526; 92610; 93005; 93010; 94760; 96374-59; 97116; 97162; 97166; 97530; 97535; 99283-25; 99285-25; A9270; G0378; G0480; J0360; J1650; J2060; J3480; J7030; J7042; J7060

== ENCOUNTER 2021-01-26 13:15 | Emergency (ER) | payer OTHER ==
[~2021-01-26] VITALS: Ht 170.2 cm; Wt 95.2 kg
[~2021-01-26 13:15] MED LIST changes: +MIRALAX17 GM PO
[2021-01-26 14:19] LABS: Source, Urine Clean Catch
[2021-01-26 14:29] LABS: BASOPHILS ABSOLUTE AUTO 0.08 K/mm3 (0.00-0.23); BASOPHILS PERCENT AUTO 1 % (0-2); EOSINOPHILS ABSOLUTE AUTO 0.17 K/mm3 (0.00-0.68); EOSINOPHILS PERCENT AUTO 2 % (0-6); Hematocrit 40.4 % (33.0-51.0); Hemoglobin 13.1 g/dL (11.5-16.0); IMMATURE GRAN ABSOLUTE AUTO 0.19 K/mm3 (0.00-0.10); IMMATURE GRAN PERCENT AUTO 2 % (0-1); LYMPHOCYTES PERCENT AUTO 25 % (21-46); MONOCYTES ABSOLUTE AUTO 0.99 K/mm3 (0.16-1.47); MONOCYTES PERCENT AUTO 8 % (4-13); Mean Corpuscular HGB 31.6 pg (26.0-34.0); Mean Corpuscular HGB Conc 32.4 g/dL (31.5-36.5); Mean Corpuscular Volume 98 fL (80-100); Mean Platelet Volume 9.7 fL (9.1-12.4); NEUTROPHILS ABSOLUTE AUTO 7.39 K/mm3 (1.96-9.15); NEUTROPHILS PERCENT AUTO 63 % (41-73); Platelet Count 313 K/mm3 (150-400); RDW Coefficient Variation 14.4 % (11.7-14.2); RDW Standard Deviation 51.5 fL (35.1-46.3); Red Blood Cell Count 4.14 M/mm3 (3.80-5.20); White Blood Cell Count 11.72 K/mm3 (4.00-11.30)
[2021-01-26 14:31] LABS: Appearance, Urine Clear (Clear); Bilirubin, Urine Neg (Neg); Blood, Urine Neg (Neg); Color, Urine Yellow (P-Yellow); Glucose Qualitative, Urine Neg (Neg); Ketones, Urine Neg (Neg); Leukocyte Esterase, Urine 1+ (Neg); Nitrite, Urine Neg (Neg); Protein, Urine 1+ (Neg); Specific Gravity, Urine 1.015 (1.003-1.022); Urobilinogen, Urine NORM (Normal)
[2021-01-26 14:40] LABS: Bacteria Mod /hpf; Red Blood Cells, Urine 0-2 /hpf (0-2); Squamous Epithelial Cells Few /hpf (Few); White Blood Cells, Urine 0-2 /hpf (0-5)
[2021-01-26 14:41] LABS: Alanine Aminotransfer (ALT/SGP 26 U/L (12-78); Albumin, Blood 3.5 g/dL (3.4-5.0); Alk Phos 87 U/L (50-136); Anion Gap 6 mmol/L (6-16); Aspartate Aminotrans (AST/SGOT 15 U/L (12-37); Bilirubin, Total 0.4 mg/dL (0.1-1.0); Blood Urea Nitrogen 13 mg/dL (8-24); Bun/Creatinine Ratio 13.3 (12.0-20.0); CO2, Blood 23 mmol/L (21-32); Calcium, Blood 8.8 mg/dL (8.5-10.1); Chloride, Blood 111 mmol/L (98-108); Creatinine, Blood 0.98 mg/dL (0.40-1.00); Ethanol (Alcohol), Blood, Med <3 mg/dL; Globulin, Blood 3.6 g/dL (2.2-4.0); Glomerular Filtration Rate >60 (60-); Glucose, Blood 93 mg/dL (70-99); Potassium, Blood 4.1 mmol/L (3.5-5.5); Salicylate 3.9 mg/dL (2.8-20.0); Sodium, Blood 140 mmol/L (136-145); Total Protein, Blood 7.1 g/dL (6.4-8.2)
[2021-01-26 14:43] LABS: Acetaminophen, Random <2.0 ug/mL (10.0-30.0)
[2021-01-26 14:44] LABS: Lithium <0.20 mmol/L (0.60-1.20)
[2021-01-26 14:45] LABS: U Amphetamine Screen Not Detected; U Barbituate Screen Not Detected; U Benzodiazapine Screen Not Detected; U Buprenorphine Screen Not Detected; U Cannabinoids Screen DETECTED; U Cocaine Screen Not Detected; U Methadone Screen Not Detected; U Methamphetamine Screen Not Detected; U Opiates Screen Not Detected; U Oxycodone Screen Not Detected; U Phencyclidine Screen Not Detected; U Propoxyphene Screen Not Detected
== END 2021-01-26 17:34 | disposition home or self-care (01) ==
LOC: ER 13:15
PROVIDERS: Physician Assistant
DX: Z00.8 Encounter for other general examination (principal); Z87.891 Personal history of nicotine dependence; F31.9 Bipolar disorder, unspecified
CPT/HCPCS: 36415; 80053; 80178; 81001; 81025; 85025; 87086; 99283; G0480

== ENCOUNTER → 2021-08-04 | Outpatient (CLI) | payer OTHER ==
[2021-08-04 18:06] LABS: BASOPHILS ABSOLUTE AUTO 0.04 K/mm3 (0.00-0.23); BASOPHILS PERCENT AUTO 1 % (0-2); EOSINOPHILS ABSOLUTE AUTO 0.13 K/mm3 (0.00-0.68); EOSINOPHILS PERCENT AUTO 2 % (0-6); Hemoglobin 15.7 g/dL (11.5-16.0); IMMATURE GRAN ABSOLUTE AUTO 0.06 K/mm3 (0.00-0.10); IMMATURE GRAN PERCENT AUTO 1 % (0-1); LYMPHOCYTES PERCENT AUTO 27 % (21-46); MONOCYTES ABSOLUTE AUTO 1.24 K/mm3 (0.16-1.47); MONOCYTES PERCENT AUTO 14 % (4-13); Mean Corpuscular HGB Conc 34.1 g/dL (31.5-36.5); Mean Corpuscular Volume 91 fL (80-100); Mean Platelet Volume 9.8 fL (9.1-12.4); NEUTROPHILS ABSOLUTE AUTO 4.87 K/mm3 (1.96-9.15); NEUTROPHILS PERCENT AUTO 56 % (41-73); Platelet Count 271 K/mm3 (150-400); RDW Coefficient Variation 13.1 % (11.7-14.2); RDW Standard Deviation 42.7 fL (35.1-46.3); Red Blood Cell Count 5.07 M/mm3 (3.80-5.20); White Blood Cell Count 8.64 K/mm3 (4.00-11.30)
[2021-08-04 18:24] LABS: Alanine Aminotransfer (ALT/SGP 40 U/L (12-78); Albumin, Blood 3.8 g/dL (3.4-5.0); Albumin/Globulin Ratio 1.1 (0.8-1.8); Alk Phos 117 U/L (40-126); Anion Gap 13 mmol/L (6-16); Aspartate Aminotrans (AST/SGOT 21 U/L (12-37); Bilirubin, Total 0.2 mg/dL (0.1-1.0); Blood Urea Nitrogen 11 mg/dL (8-24); Bun/Creatinine Ratio 11.8 (12.0-20.0); CO2, Blood 21 mmol/L (21-32); Calcium, Blood 9.3 mg/dL (8.5-10.1); Chloride, Blood 106 mmol/L (98-108); Creatinine, Blood 0.93 mg/dL (0.40-1.00); Globulin, Blood 3.5 g/dL (2.2-4.0); Glomerular Filtration Rate >60 (60-); Glucose, Blood 139 mg/dL (70-99); Potassium, Blood 3.8 mmol/L (3.5-5.5); Sodium, Blood 140 mmol/L (136-145); Thyroid Stimulating Hormone 0.772 uIU/mL (0.360-4.800); Total Protein, Blood 7.3 g/dL (6.4-8.2)
== END ==
LOC: LAB SHORT 18:01
PROVIDERS: Physician Assistant
DX: R00.0 Tachycardia, unspecified (principal); R53.83 Other fatigue
CPT/HCPCS: 80053; 84443; 85025

== ENCOUNTER 2021-09-08 06:49 | Day surgery (SDC) | payer OTHER ==
[~2021-09-08] VITALS: Ht 170.2 cm; Wt 104.2 kg
[~2021-09-08 06:49] MED LIST changes: +ASPI325 PO; +EXCEDRIN PO; +FLONASE SENSIM5.9 M1; +MAGCHL64ER PO; +Pepcid 20 mg Ta20 MG PO; +Prinivil10 MG PO; +QUET100 PO; +SAPHRIS5 M1 MM; +Triamcinolone A15 G3 TOP; +VRAYLAR3 MG PO
--- NOTE | 2021-09-08 07:55 | NUR ---
PT BEEN UNABLE TO VOID SO FAR FOR HCG. DISCUSSED WITH ANESTHESIA, DR WHEATLEY WHO REPORTED TO HAVE IVF WIDE OPEN TO SEE IF IT WILL HELP PT VOID. DISCUSSED WITH CORPORATE TECHNICAL RECRUITER. IVF WIDE OPEN.
--- NOTE | 2021-09-08 08:03 | NUR ---
PT RECENTLY Ambulatory in Day Surgery WITH MOM PRESENT, PT WITH HX OF BIPOLAR. PT ORIENTED. History, Chart, Medications and Allergies reviewed before start of procedure.Lungs clear T/O to Auscultation. Patient confirms NPO status and agrees with scheduled surgery. Pre-Op teaching done. Pt verbalizes understanding.
--- NOTE | 2021-09-08 08:25 | NUR ---
PT ATTEMPTING TO VOID AGAIN, USING HAT IN TOILET. PT HAS HAD [address] DISCUSSED WITH GROUP CHIEF OPERATOR M.P. WELL DR WHEATLEY.
--- NOTE | 2021-09-08 08:45 | NUR ---
BLOOD DRAWN FOR SERUM HCG PER DR WHEATLEY PT HAD 500 ML OF IVF AND WAS STILL UNABLE TO VOID. BLOOD SENT TO LAB. LAB NOTIFIED OF STAT ORDER.
[2021-09-08] MEDS ORDERED: CLON1 PO (08:49)
[2021-09-08] MEDS ORDERED: CLONAZEPAM (08:51)
--- NOTE | 2021-09-08 09:30 | NUR ---
PT HAD TO USE RESTROOM IN THE MIDDLE OF THE BREATHING TREATMENT. TREATMENT RESUMED AT THIS TIME. PT MED ORDERED WITH VERSED AND PEPCID AFTER GETTING BACK FROM BATHROOM. JUST AFTER STARTING THE BREATHING TREATMENT THE PT'S MOM WANTED TO TALK TO ANESTHESIA IN REGARDS TO THE BREATHING TREATMENT MAKING HER ANXIETY WORSE. DR WHEATLEY WAS BACK TO ROOM TO TALK WITH PT AND MOM, WILL RESUME BREATHING TX NOW.
--- NOTE | 2021-09-08 18:30 | NUR ---
SHIFT SUMMARY PT HAS DONE WELL TODAY. INITIALLY WAS ANXIOUS R/T PAIN MANAGEMENT. BUT DOING WELL NOW. EATING, DRINKING, & VOIDING LARGE AMOUNTS. WORKED w/ THERAPY.
--- NOTE | 2021-09-08 20:15 | NUR ---
offered pm care items, pt went for walk, filled kyro ice machine, calmed pt down very emptional call light within reach
--- NOTE | 2021-09-09 00:01 | NUR ---
46 year old PT with anxiety depression bipolar has multiple requests post total left knee replacement. medicated for pain & anxiety depression with mild helpful effect.
[2021-09-09 04:37] LABS: BASOPHILS ABSOLUTE AUTO 0.04 K/mm3 (0.00-0.23); BASOPHILS PERCENT AUTO 0 % (0-2); EOSINOPHILS ABSOLUTE AUTO 0.02 K/mm3 (0.00-0.68); EOSINOPHILS PERCENT AUTO 0 % (0-6); Hematocrit 38.6 % (33.0-51.0); Hemoglobin 12.2 g/dL (11.5-16.0); IMMATURE GRAN ABSOLUTE AUTO 0.09 K/mm3 (0.00-0.10); IMMATURE GRAN PERCENT AUTO 1 % (0-1); LYMPHOCYTES PERCENT AUTO 18 % (21-46); MONOCYTES ABSOLUTE AUTO 0.79 K/mm3 (0.16-1.47); MONOCYTES PERCENT AUTO 6 % (4-13); Mean Corpuscular HGB 30.3 pg (26.0-34.0); Mean Corpuscular HGB Conc 31.6 g/dL (31.5-36.5); Mean Corpuscular Volume 96 fL (80-100); Mean Platelet Volume 9.7 fL (9.1-12.4); NEUTROPHILS ABSOLUTE AUTO 10.48 K/mm3 (1.96-9.15); NEUTROPHILS PERCENT AUTO 75 % (41-73); Platelet Count 319 K/mm3 (150-400); RDW Coefficient Variation 13.5 % (11.7-14.2); RDW Standard Deviation 47.8 fL (35.1-46.3); Red Blood Cell Count 4.03 M/mm3 (3.80-5.20); White Blood Cell Count 13.92 K/mm3 (4.00-11.30)
[2021-09-09 05:01] LABS: Anion Gap 8 mmol/L (6-16); Blood Urea Nitrogen 17 mg/dL (8-24); Bun/Creatinine Ratio 18.5 (12.0-20.0); CO2, Blood 23 mmol/L (21-32); Calcium, Blood 8.8 mg/dL (8.5-10.1); Chloride, Blood 109 mmol/L (98-108); Creatinine, Blood 0.92 mg/dL (0.40-1.00); Glomerular Filtration Rate >60 (60-); Glucose, Blood 158 mg/dL (70-99); Sodium, Blood 140 mmol/L (136-145)
[2021-09-09] MEDS ORDERED: ASPI81CH PO ×2 (08:34→08:56)
[2021-09-09] MEDS ORDERED: Percocet 5-3251 EACH PO (08:35)
--- NOTE | 2021-09-09 10:51 | NUR ---
PT. DISCHARGED AT 1045 TO HOME WITH MOTHER. PATIENT TEACHING DONE WITH MOM IN ROOM. PT HERE TO TEACH MOM AND PATIENT ALSO. DC INSTRUCTIONS REVIEWED A FEW TIMES AND MOM VERBALIZE UNDERSTANDING. DRESSING CHANGED LEFT KNEE WITH AQUA CELL LAQUITA. , EXTRA DRESSING SENT WITH PATIENT. BELONGINGS SENT WITH PATIENT, W/C TO EXIT. POLAR PACK INSTRUCTIONS GIVEN TO MOM, POLAR PACK SENT.
--- NOTE | 2021-09-09 10:53 | NUR ---
PRESCRIPTION FOR PERCOCET AND ASA 81MG SENT WITH MOTHER. EXPLAINED TO MOM TO STOP ASA 325MG PT. WILL BE TAKING ASA 81MG DAILY. MOTHER AND PT. VERBALIZE UNDERSTANDING
== END 2021-09-09 10:50 | disposition home or self-care (01) ==
LOC: ORSCMMR 06:49 → ORD 08:15 → ORSCMMR 08:15 → SURS 12:40 → ORSCMMR 09-09 10:50
PROVIDERS: Orthopaedic Surgery
DX: M17.0 Bilateral primary osteoarthritis of knee (principal); Z79.899 Other long term (current) drug therapy; Z87.891 Personal history of nicotine dependence; I10 Essential (primary) hypertension; J45.909 Unspecified asthma, uncomplicated; F33.9 Major depressive disorder, recurrent, unspecified; K21.9 Gastro-esophageal reflux disease without esophagitis; Z79.82 Long term (current) use of aspirin; E66.01 Morbid (severe) obesity due to excess calories; Z68.36 Body mass index [BMI] 36.0-36.9, adult
CPT/HCPCS: 27447; S2900; 36415; 73560-LT; 80048; 84703; 85025; 97116; 97161; 97530; A9270; C1776; J0171; J0690; J0735; J1100; J1170; J1885; J2250; J2270; J2370; J2405; J2704; J2710; J2795; J3010; J7120

== ENCOUNTER 2022-01-26 11:10 | Day surgery (SDC) | payer OTHER ==
[~2022-01-26] VITALS: Ht 170.2 cm; Wt 104.5 kg
[~2022-01-26 11:10] MED LIST changes: +ASPI81CH PO; +CLON1 PO; +CLONAZEPAM; +Percocet 5-3251 EACH PO
--- NOTE | 2022-01-26 12:50 | NUR ---
History, Chart, Medications and Allergies reviewed before start of procedure. Lungs clear T/O to Auscultation. Patient confirms NPO status and agrees with scheduled surgery. Pre-Op teaching done. Pt verbalizes understanding. Patient reports completing Chlorhexadine shower X2 prior to admission to hospital.
--- NOTE | 2022-01-26 19:20 | NUR ---
SHIFT SUMMARY A&OX4, VSS/RA, R TKA AQUACEL CDI. PAIN MEDICATED PER EMAR. TAMELA PO. VOIDING. REPORT PROVIDED TO ALIVIA LEVINE.
--- NOTE | 2022-01-27 04:19 | NUR ---
SUMMARY NO NEW ISSUAES NOTED. PT HAS BEEN RESTING WELL. PT PAIN MANAGED WELL. PT HAS BEEN VOIDING WELL. PT CALL LIGHT IN REACH.
[2022-01-27 06:07] LABS: BASOPHILS ABSOLUTE AUTO 0.02 K/mm3 (0.00-0.23); BASOPHILS PERCENT AUTO 0 % (0-2); EOSINOPHILS PERCENT AUTO 0 % (0-6); Hematocrit 36.9 % (33.0-51.0); IMMATURE GRAN PERCENT AUTO 1 % (0-1); LYMPHOCYTES ABSOLUTE AUTO 1.96 K/mm3 (0.84-5.20); LYMPHOCYTES PERCENT AUTO 13 % (21-46); MONOCYTES PERCENT AUTO 7 % (4-13); Mean Corpuscular HGB 29.8 pg (26.0-34.0); Mean Corpuscular HGB Conc 32.5 g/dL (31.5-36.5); Mean Corpuscular Volume 92 fL (80-100); Mean Platelet Volume 9.7 fL (9.1-12.4); NEUTROPHILS ABSOLUTE AUTO 11.88 K/mm3 (1.96-9.15); NEUTROPHILS PERCENT AUTO 79 % (41-73); Platelet Count 307 K/mm3 (150-400); RDW Coefficient Variation 13.5 % (11.7-14.2); RDW Standard Deviation 45.9 fL (35.1-46.3); Red Blood Cell Count 4.03 M/mm3 (3.80-5.20); White Blood Cell Count 15.06 K/mm3 (4.00-11.30)
[2022-01-27 06:26] LABS: Bun/Creatinine Ratio 17.3 (12.0-20.0); Creatinine, Blood 0.87 mg/dL (0.40-1.00); Potassium, Blood 4.5 mmol/L (3.5-5.5)
[2022-01-27] MEDS ORDERED: Percocet 5-3251 EACH PO (09:46)
[2022-01-27] MEDS ORDERED: ASPIR 8181 M1 PO (09:46)
--- NOTE | 2022-01-27 10:46 | NUR ---
DISCHARGE VSS ON RA. GAUZE & EDMOND WRAP TO RIGHT KNEE, C/D/I. PATIENT CLEARED THERAPY WELL. EATING, DRINKING, & VOIDING WELL. DISCUSSED DISCHARGE INSTRUCTIONS WITH PATIENT, ALL QUESTIONS AND CONCERNS ANSWERED. SENT SCRIPTS, DRESSINGS, DISCHARGE INSTRUCTIONS, AND POLAR PACK WITH PATIENT. ESCORTED OUT VIA W/C.
== END 2022-01-27 10:58 | disposition home or self-care (01) ==
LOC: ORSCMMR 11:10 → SURS 15:41 → ORSCMMR 01-27 10:58
PROVIDERS: Orthopaedic Surgery
PROC: 8E0Y0CZ Robotic Assisted Procedure of Lower Extremity, Open Approach (ICD-10-PCS; principal; 2022-01-26 12:30)
PROC: 8E0YXBZ Computer Assisted Procedure of Lower Extremity (ICD-10-PCS; principal; 2022-01-26 12:30)
PROC: 0SRC0JA Replacement of Right Knee Joint with Synthetic Substitute, Uncemented, Open Approach (ICD-10-PCS; principal; 2022-01-26 12:30)
DX: M17.11 Unilateral primary osteoarthritis, right knee (principal); Z96.652 Presence of left artificial knee joint; E66.9 Obesity, unspecified; Z68.35 Body mass index [BMI] 35.0-35.9, adult; Z87.891 Personal history of nicotine dependence; I10 Essential (primary) hypertension; F32.A Depression, unspecified; Z79.899 Other long term (current) drug therapy
CPT/HCPCS: 27447; 20985; S2900; 36415; 73560-RT; 80048; 84703; 85025; 97110; 97116; 97162; A9270; C1776; J0171; J0690; J0735; J1100; J1170; J1885; J2250; J2405; J2704; J2765; J2795; J3010; J7120

== ENCOUNTER 2022-08-06 13:54 | Emergency (ER) | payer OTHER ==
[~2022-08-06] VITALS: Ht 170.2 cm; Wt 97.5 kg
[~2022-08-06 13:54] MED LIST changes: +ASPIR 8181 M1 PO
[2022-08-06 14:45] LABS: Source, Urine Clean Catch
[2022-08-06 14:52] LABS: Appearance, Urine Hazy (Clear); Bilirubin, Urine Neg (Neg); Blood, Urine Neg (Neg); Glucose Qualitative, Urine Neg (Neg); Ketones, Urine Neg (Neg); Leukocyte Esterase, Urine 1+ (Neg); Nitrite, Urine Neg (Neg); Protein, Urine Neg (Neg); Urobilinogen, Urine NORM (Normal)
[2022-08-06 15:02] LABS: Color, Urine Pale Yellow (P-Yellow)
[2022-08-06 15:03] LABS: Bacteria Mod /hpf; Red Blood Cells, Urine 0-2 /hpf (0-2); Squamous Epithelial Cells Few /hpf (Few)
[2022-08-06 15:22] LABS: U Amphetamine Screen Not Detected; U Barbituate Screen Not Detected; U Benzodiazapine Screen Not Detected; U Buprenorphine Screen Not Detected; U Cannabinoids Screen DETECTED; U Cocaine Screen Not Detected; U Methadone Screen Not Detected; U Methamphetamine Screen Not Detected; U Opiates Screen Not Detected; U Oxycodone Screen Not Detected; U Phencyclidine Screen Not Detected; U Propoxyphene Screen Not Detected
[2022-08-06] MEDS ORDERED: QUET300 PO (15:30)
[2022-08-06] MEDS ORDERED: CLON1 PO (15:30)
[2022-08-06] MEDS ORDERED: PERP4 PO (15:31)
[2022-08-06 17:47] LABS: Ethanol (Alcohol), Blood, Med <3 mg/dL; Salicylate <1.7 mg/dL (2.8-20.0)
[2022-08-06 17:52] LABS: BASOPHILS ABSOLUTE AUTO 0.07 K/mm3 (0.00-0.23); BASOPHILS PERCENT AUTO 1 % (0-2); EOSINOPHILS ABSOLUTE AUTO 0.28 K/mm3 (0.00-0.68); EOSINOPHILS PERCENT AUTO 3 % (0-6); Hematocrit 38.1 % (33.0-51.0); Hemoglobin 12.6 g/dL (11.5-16.0); IMMATURE GRAN ABSOLUTE AUTO 0.05 K/mm3 (0.00-0.10); IMMATURE GRAN PERCENT AUTO 1 % (0-1); LYMPHOCYTES ABSOLUTE AUTO 3.39 K/mm3 (0.84-5.20); LYMPHOCYTES PERCENT AUTO 38 % (21-46); MONOCYTES ABSOLUTE AUTO 0.74 K/mm3 (0.16-1.47); MONOCYTES PERCENT AUTO 8 % (4-13); Mean Corpuscular HGB 30.5 pg (26.0-34.0); Mean Corpuscular HGB Conc 33.1 g/dL (31.5-36.5); Mean Corpuscular Volume 92 fL (80-100); Mean Platelet Volume 9.5 fL (9.1-12.4); NEUTROPHILS ABSOLUTE AUTO 4.44 K/mm3 (1.96-9.15); NEUTROPHILS PERCENT AUTO 50 % (41-73); Platelet Count 333 K/mm3 (150-400); RDW Coefficient Variation 13.3 % (11.7-14.2); RDW Standard Deviation 45.4 fL (35.1-46.3); Red Blood Cell Count 4.13 M/mm3 (3.80-5.20); White Blood Cell Count 8.97 K/mm3 (4.00-11.30)
[2022-08-06 17:59] LABS: Acetaminophen, Random <2.0 ug/mL (10.0-30.0); Alanine Aminotransfer (ALT/SGP 17 U/L (12-78); Albumin, Blood 3.4 g/dL (3.4-5.0); Alk Phos 109 U/L (50-136); Anion Gap 3 mmol/L (6-16); Aspartate Aminotrans (AST/SGOT 24 U/L (12-37); Bilirubin, Total 0.3 mg/dL (0.1-1.0); Blood Urea Nitrogen 14 mg/dL (8-24); Bun/Creatinine Ratio 15.4 (12.0-20.0); CO2, Blood 21 mmol/L (21-32); Calcium, Blood 8.8 mg/dL (8.5-10.1); Chloride, Blood 115 mmol/L (98-108); Creatinine, Blood 0.91 mg/dL (0.40-1.00); Globulin, Blood 3.4 g/dL (2.2-4.0); Glomerular Filtration Rate 79 (60-); Glucose, Blood 94 mg/dL (70-99); Potassium, Blood 4.8 mmol/L (3.5-5.5); Sodium, Blood 139 mmol/L (136-145); Total Protein, Blood 6.8 g/dL (6.4-8.2)
== END 2022-08-06 22:22 | disposition home or self-care (01) ==
LOC: ER 13:54
PROVIDERS: Student in an Organized Health Care Education/Training Program
DX: F25.0 Schizoaffective disorder, bipolar type (principal); Z79.899 Other long term (current) drug therapy; Z88.8 Allergy status to other drugs, medicaments and biological substances; Z91.09 Other allergy status, other than to drugs and biological substances; Z87.891 Personal history of nicotine dependence; Z63.4 Disappearance and death of family member
CPT/HCPCS: 36415; 80053; 81001; 81025; 85025; 87086; G0480

== ENCOUNTER 2023-03-03 17:18 | Emergency (ER) | payer OTHER ==
[~2023-03-03] VITALS: Ht 170.2 cm; Wt 102.1 kg
[~2023-03-03 17:18] MED LIST changes: +PERP4 PO; +QUET300 PO
[2023-03-03 17:42] VITALS: BP 157/90
[2023-03-03 18:35] LABS: BASOPHILS ABSOLUTE AUTO 0.12 K/mm3 (0.00-0.23); BASOPHILS PERCENT AUTO 1 % (0-2); EOSINOPHILS ABSOLUTE AUTO 0.42 K/mm3 (0.00-0.68); EOSINOPHILS PERCENT AUTO 4 % (0-6); Hematocrit 42.1 % (33.0-51.0); Hemoglobin 14.2 g/dL (11.5-16.0); IMMATURE GRAN ABSOLUTE AUTO 0.06 K/mm3 (0.00-0.10); IMMATURE GRAN PERCENT AUTO 1 % (0-1); LYMPHOCYTES ABSOLUTE AUTO 2.72 K/mm3 (0.84-5.20); LYMPHOCYTES PERCENT AUTO 29 % (21-46); MONOCYTES PERCENT AUTO 11 % (4-13); Mean Corpuscular HGB 30.9 pg (26.0-34.0); Mean Corpuscular HGB Conc 33.7 g/dL (31.5-36.5); Mean Corpuscular Volume 92 fL (80-100); Mean Platelet Volume 9.4 fL (9.1-12.4); NEUTROPHILS ABSOLUTE AUTO 5.18 K/mm3 (1.96-9.15); NEUTROPHILS PERCENT AUTO 55 % (41-73); Platelet Count 394 K/mm3 (150-400); RDW Standard Deviation 47.3 fL (35.1-46.3); Red Blood Cell Count 4.59 M/mm3 (3.80-5.20)
[2023-03-03 19:03] LABS: Ethanol (Alcohol), Blood, Med <3 mg/dL; Salicylate 3.7 mg/dL (2.8-20.0)
[2023-03-03 19:24] LABS: Acetaminophen, Random <2.0 ug/mL (10.0-30.0); Alanine Aminotransfer (ALT/SGP 41 U/L (12-78); Albumin, Blood 4.3 g/dL (3.4-5.0); Albumin/Globulin Ratio 1.2 (0.8-1.8); Alk Phos 116 U/L (50-136); Anion Gap 4 mmol/L (6-16); Aspartate Aminotrans (AST/SGOT 27 U/L (12-37); Bilirubin, Total 0.3 mg/dL (0.1-1.0); Blood Urea Nitrogen 9 mg/dL (8-24); Bun/Creatinine Ratio 9.1 (12.0-20.0); CO2, Blood 21 mmol/L (21-32); Calcium, Blood 9.5 mg/dL (8.5-10.1); Chloride, Blood 112 mmol/L (98-108); Creatinine, Blood 0.99 mg/dL (0.40-1.00); Globulin, Blood 3.6 g/dL (2.2-4.0); Glomerular Filtration Rate 71 (60-); Glucose, Blood 113 mg/dL (70-99); Potassium, Blood 4.3 mmol/L (3.5-5.5); Sodium, Blood 137 mmol/L (136-145); Total Protein, Blood 7.9 g/dL (6.4-8.2)
== END 2023-03-03 20:30 | disposition home or self-care (01) ==
LOC: ER 17:18
PROVIDERS: Physician Assistant
DX: F41.9 Anxiety disorder, unspecified (principal); Z87.891 Personal history of nicotine dependence
CPT/HCPCS: 36415; 80053; 85025; 99283; G0480

== ENCOUNTER 2023-04-15 12:10 | Observation (INO) | payer OTHER ==
[~2023-04-15] VITALS: Ht 170.2 cm; Wt 97.5 kg
[2023-04-15 12:16] VITALS: BP 149/93
[2023-04-15 12:44] LABS: Source, Urine Clean Catch
[2023-04-15 12:50] LABS: Bilirubin, Urine Neg (Neg); Blood, Urine Neg (Neg); Color, Urine Yellow (P-Yellow); Glucose Qualitative, Urine Neg (Neg); Ketones, Urine Neg (Neg); Leukocyte Esterase, Urine 3+ (Neg); Nitrite, Urine Neg (Neg); Protein, Urine Neg (Neg); Urobilinogen, Urine NORM (Normal); pH, Urine 6.5 (5.0-8.0)
[2023-04-15 13:02] LABS: BASOPHILS ABSOLUTE AUTO 0.14 K/mm3 (0.00-0.23); BASOPHILS PERCENT AUTO 1 % (0-2); EOSINOPHILS ABSOLUTE AUTO 0.35 K/mm3 (0.00-0.68); EOSINOPHILS PERCENT AUTO 4 % (0-6); Hematocrit 40.4 % (33.0-51.0); Hemoglobin 13.4 g/dL (11.5-16.0); IMMATURE GRAN PERCENT AUTO 1 % (0-1); LYMPHOCYTES ABSOLUTE AUTO 3.33 K/mm3 (0.84-5.20); LYMPHOCYTES PERCENT AUTO 33 % (21-46); MONOCYTES PERCENT AUTO 10 % (4-13); Mean Corpuscular HGB 30.9 pg (26.0-34.0); Mean Corpuscular HGB Conc 33.2 g/dL (31.5-36.5); Mean Corpuscular Volume 93 fL (80-100); Mean Platelet Volume 9.5 fL (9.1-12.4); NEUTROPHILS ABSOLUTE AUTO 5.22 K/mm3 (1.96-9.15); NEUTROPHILS PERCENT AUTO 51 % (41-73); Platelet Count 386 K/mm3 (150-400); RDW Coefficient Variation 13.5 % (11.7-14.2); RDW Standard Deviation 46.4 fL (35.1-46.3); Red Blood Cell Count 4.34 M/mm3 (3.80-5.20); White Blood Cell Count 10.14 K/mm3 (4.00-11.30)
[2023-04-15 13:22] LABS: Ethanol (Alcohol), Blood, Med <3 mg/dL; Salicylate <1.7 mg/dL (2.8-20.0)
[2023-04-15 13:23] LABS: Alanine Aminotransfer (ALT/SGP 50 U/L (12-78); Albumin, Blood 3.7 g/dL (3.4-5.0); Albumin/Globulin Ratio 0.9 (0.8-1.8); Alk Phos 132 U/L (50-136); Anion Gap 5 mmol/L (6-16); Appearance, Urine Hazy (Clear); Aspartate Aminotrans (AST/SGOT 32 U/L (12-37); Bilirubin, Total 0.3 mg/dL (0.1-1.0); Blood Urea Nitrogen 15 mg/dL (8-24); Bun/Creatinine Ratio 13.2 (12.0-20.0); CO2, Blood 23 mmol/L (21-32); Calcium, Blood 8.9 mg/dL (8.5-10.1); Chloride, Blood 112 mmol/L (98-108); Creatinine, Blood 1.14 mg/dL (0.40-1.00); Globulin, Blood 3.9 g/dL (2.2-4.0); Glomerular Filtration Rate 60 (60-); Glucose, Blood 99 mg/dL (70-99); Potassium, Blood 4.5 mmol/L (3.5-5.5); Sodium, Blood 140 mmol/L (136-145); Total Protein, Blood 7.6 g/dL (6.4-8.2)
[2023-04-15 13:24] LABS: Acetaminophen, Random <2.0 ug/mL (10.0-30.0); Bacteria Many /hpf; Red Blood Cells, Urine 0-2 /hpf (0-2); Squamous Epithelial Cells Rare /hpf (Few)
[2023-04-15 13:38] LABS: U Amphetamine Screen Not Detected; U Barbituate Screen Not Detected; U Benzodiazapine Screen Not Detected; U Buprenorphine Screen Not Detected; U Cannabinoids Screen DETECTED; U Cocaine Screen Not Detected; U Methadone Screen Not Detected; U Methamphetamine Screen Not Detected; U Opiates Screen Not Detected; U Oxycodone Screen Not Detected; U Phencyclidine Screen Not Detected; U Propoxyphene Screen Not Detected
[2023-04-15] MEDS ORDERED: CEPH500 PO (14:41)
== END 2023-04-15 22:35 | disposition home or self-care (01) ==
LOC: ER 12:10 → EOR 12:11
PROVIDERS: Physician Assistant; ADMIT Emergency Medicine
DX: F31.9 Bipolar disorder, unspecified (principal); F25.9 Schizoaffective disorder, unspecified; F43.25 Adjustment disorder with mixed disturbance of emotions and conduct; F60.9 Personality disorder, unspecified
CPT/HCPCS: 80053; 81001; 81025; 85025; 87077; 87086; 87186; 99285; G0378; G0480

== ENCOUNTER 2024-02-24 16:43 | Observation (INO) | payer OTHER ==
[~2024-02-24] VITALS: Ht 170.2 cm; Wt 93.0 kg
[~2024-02-24 16:43] MED LIST changes: +CEPH500 PO
[2024-02-24 17:28] LABS: Source, Urine Clean Catch
[2024-02-24 17:32] LABS: BASOPHILS ABSOLUTE AUTO 0.13 K/mm3 (0.00-0.23); BASOPHILS PERCENT AUTO 1 % (0-2); EOSINOPHILS ABSOLUTE AUTO 0.43 K/mm3 (0.00-0.68); EOSINOPHILS PERCENT AUTO 4 % (0-6); Hematocrit 39.3 % (33.0-51.0); IMMATURE GRAN ABSOLUTE AUTO 0.12 K/mm3 (0.00-0.10); IMMATURE GRAN PERCENT AUTO 1 % (0-1); LYMPHOCYTES PERCENT AUTO 37 % (21-46); MONOCYTES ABSOLUTE AUTO 1.17 K/mm3 (0.16-1.47); MONOCYTES PERCENT AUTO 11 % (4-13); Mean Corpuscular HGB 31.4 pg (26.0-34.0); Mean Corpuscular HGB Conc 33.1 g/dL (31.5-36.5); Mean Corpuscular Volume 95 fL (80-100); Mean Platelet Volume 9.3 fL (9.1-12.4); NEUTROPHILS ABSOLUTE AUTO 4.91 K/mm3 (1.96-9.15); NEUTROPHILS PERCENT AUTO 46 % (41-73); Platelet Count 318 K/mm3 (150-400); RDW Coefficient Variation 13.5 % (11.7-14.2); Red Blood Cell Count 4.14 M/mm3 (3.80-5.20); White Blood Cell Count 10.66 K/mm3 (4.00-11.30)
[2024-02-24 17:34] LABS: Appearance, Urine Clear (Clear); Bilirubin, Urine Neg (Neg); Blood, Urine Neg (Neg); Color, Urine Yellow (P-Yellow); Glucose Qualitative, Urine Neg (Neg); Ketones, Urine Neg (Neg); Leukocyte Esterase, Urine Neg (Neg); Nitrite, Urine Neg (Neg); Protein, Urine Neg (Neg); Specific Gravity, Urine 1.025 (1.003-1.022); Urobilinogen, Urine NORM (Normal)
[2024-02-24 17:49] LABS: Acetaminophen, Random <2.0 ug/mL (10.0-30.0); Alanine Aminotransfer (ALT/SGP 27 U/L (12-78); Albumin, Blood 3.7 g/dL (3.4-5.0); Albumin/Globulin Ratio 1.1 (0.8-1.8); Alk Phos 116 U/L (50-136); Anion Gap 9 mmol/L (3-11); Aspartate Aminotrans (AST/SGOT 18 U/L (12-37); Bilirubin, Total 0.3 mg/dL (0.1-1.0); Blood Urea Nitrogen 16 mg/dL (8-24); CO2, Blood 23 mmol/L (21-32); Calcium, Blood 9.6 mg/dL (8.5-10.1); Chloride, Blood 106 mmol/L (98-108); Creatinine, Blood 0.89 mg/dL (0.40-1.00); Ethanol (Alcohol), Blood, Med <3 mg/dL; Globulin, Blood 3.4 g/dL (2.2-4.0); Glomerular Filtration Rate 80 (60-); Glucose, Blood 137 mg/dL (70-99); Potassium, Blood 3.7 mmol/L (3.5-5.5); Salicylate <1.7 mg/dL (2.8-20.0); Sodium, Blood 134 mmol/L (136-145); Total Protein, Blood 7.1 g/dL (6.4-8.2)
[2024-02-24 17:51] LABS: U Amphetamine Screen Not Detected; U Barbituate Screen Not Detected; U Benzodiazapine Screen Not Detected; U Buprenorphine Screen Not Detected; U Cannabinoids Screen DETECTED; U Cocaine Screen Not Detected; U Methadone Screen Not Detected; U Methamphetamine Screen Not Detected; U Opiates Screen Not Detected; U Oxycodone Screen Not Detected; U Phencyclidine Screen Not Detected
[2024-02-24 19:23] LABS: Influenza A, PCR NEGATIVE (NEGATIVE); Influenza B, PCR NEGATIVE (NEGATIVE); Resp Syncytial Virus, PCR NEGATIVE (NEGATIVE); SARS-Cov-2 (COVID-19) PCR, MMC NEGATIVE (NEGATIVE)
[2024-02-24] MEDS ORDERED: Acetaminophen 500 MG Tab PO ONE (20:20)
[2024-02-24] MEDS ORDERED: LORazepam 2 MG/ML 1ML Injection IV ONE (20:30)
[2024-02-24] MEDS ORDERED: LORazepam 1 MG Tab PO ONE (20:35)
[2024-02-24] MEDS ORDERED: HyDROXyzine HCl 25 MG Tab PO PRN (21:35)
[2024-02-24] MEDS ORDERED: Propranolol HCL 20 MG TAB PO SCH (21:40)
[2024-02-24] MEDS ORDERED: Nicotine 21 MG PATCH TOP ONE (21:40)
[2024-02-24] MEDS ORDERED: QUEtiapine Fumarate 200 MG Tab PO SCH (21:40)
[2024-02-24] MEDS ORDERED: Propranolol HCL 20 MG TAB PO ONE (21:45)
[2024-02-24] MEDS ORDERED: QUEtiapine Fumarate 100 MG Tab PO ONE (21:45)
[2024-02-25 04:38] VITALS: BP 124/87
[2024-02-25] MEDS ORDERED: Ibuprofen 600 MG Tab PO ONE (05:00)
[2024-02-25] MEDS ORDERED: Lisinopril 10 MG Tab PO SCH (09:00)
[2024-02-25] MEDS ORDERED: LamoTRIgine 100 MG Tab PO SCH (09:00)
[2024-02-25] MEDS ORDERED: Propranolol HCL 20 MG TAB PO SCH (21:00)
[2024-02-25] MEDS ORDERED: QUEtiapine Fumarate 200 MG Tab PO SCH (21:00)
== END 2024-02-25 13:00 | disposition other institution (70) ==
LOC: ER 16:43 → EOR 16:44
PROVIDERS: Physician Assistant; Student in an Organized Health Care Education/Training Program; ADMIT Psychiatry & Neurology Psychiatry
DX: R45.851 Suicidal ideations (principal); F20.9 Schizophrenia, unspecified; F31.9 Bipolar disorder, unspecified; G47.00 Insomnia, unspecified; F12.90 Cannabis use, unspecified, uncomplicated; Z87.891 Personal history of nicotine dependence; Z88.8 Allergy status to other drugs, medicaments and biological substances; Z79.899 Other long term (current) drug therapy
CPT/HCPCS: 0241U; 36415; 80053; 80320; 81003; 81025; 85025; 99285; A9270; G0378; G0480

== ENCOUNTER 2024-02-25 11:47 | Inpatient (IN) | payer OTHER ==
[~2024-02-25] VITALS: Ht 170.2 cm; Wt 93.0 kg
[2024-02-25] MEDS ORDERED: ClonazePAM 0.5 MG Tab PO PRN (12:45)
[2024-02-25 13:40] VITALS: BP 128/79
[2024-02-25 14:40] VITALS: BP 128/79
[2024-02-25] MEDS ORDERED: Prinivil10 MG PO (15:04)
--- NOTE | 2024-02-25 16:02 | NUR ---
ADMIT NOTE: PT TO UNIT FROM ER. SHE IS CONVERSIVE AND ENGAGED DURING ASSESSMENT BUT EASILY DISTRACTED. STATES THAT SHE MOVED HER 14 YEARS AGO WITH HER MOTHER FROM [place]. STATES THAT HER SON REMAINED IN [place] AND IS NOW 20 YEARS OLD. PT BECAME UPSET AND STATED MULTIPLE TIMES THAT WANTS TO BE ABLE TO VISIT HER SON SOON. STATES THAT LIVES WITH HER MOM AND HER BOYFRIEND OF 14 YEARS IN HIS HOUSE. STATES THAT HE YELLS AND CUSSES AND THEY ARGUE OFTEN. 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 SHE DENIES SI, HI OR AVH. STATES THAT SHE WANTS TO BE WITH HER FAMILY THAT HAS BUT DOESN'T WANT TO KILL HERSELF. PT ORIENTED TO UNIT AND HER ROOM.
--- NOTE | 2024-02-25 17:34 | NUR ---
SHIFT SUMMARY: PT IN AND OUT OF ROOM DURING SHIFT. AGGITATED AT TIMES AND TALKING LOUDLY. DISCUSSED FAMILY CONCERNS AND FRUSTRATIONS SHE HAS WITH DIFFERENT PEOPLE. DISCUSSED THE IMPORTANCE OF BEING RESPECTFUL OF OTHERS WITHIN THE UNIT. SHE SHOWERED AFTER DINNER AND WAS PROVIDED WITH CLEAN SCRUBS. MEDICATED WITH PRN FOR ANXIETY.
[2024-02-25] MEDS ORDERED: Nicotine 21 MG PATCH TOP ONE (18:45)
[2024-02-25] MEDS ORDERED: Nicotine 21 MG PATCH TOP SCH (19:00)
[2024-02-25] MEDS ORDERED: Propranolol HCL 20 MG TAB PO SCH ×2 (21:00)
[2024-02-25] MEDS ORDERED: QUEtiapine Fumarate 200 MG Tab PO SCH ×2 (21:00)
[2024-02-25] MEDS ORDERED: LamoTRIgine 100 MG Tab PO SCH ×2 (21:00)
[2024-02-25] MEDS ORDERED: ClonazePAM 0.5 MG Tab PO SCH (21:00)
[2024-02-25] MEDS ORDERED: QUEtiapine Fumarate 100 MG Tab PO ONE (21:20)
[2024-02-25] MEDS ORDERED: Albuterol HFA200 ACT/6.7 GM INH INH PRN (21:20)
[2024-02-25] MEDS ORDERED: Ondansetron 4 MG SoluTab SL PRN (21:25)
[2024-02-26 08:26] VITALS: BP 125/84
[2024-02-26] MEDS ORDERED: Lisinopril 10 MG Tab PO SCH ×2 (09:00)
[2024-02-26] MEDS ORDERED: HydrOXYzine Pamoate 50 MG Cap PO PRN (11:55)
[2024-02-26] MEDS ORDERED: Polyethylene Glycol 3350 17 gm PO ONE (15:55)
--- NOTE | 2024-02-26 17:11 | NUR ---
SHIFT SUMMARY: PT ALERT AND ORIENTED. PARTICIPATED IN MILIEU AND GROUP ACTIVITIES. PT HAD PERIODS OF AGGITATION OFF AND ON THROUGH OUT THE DAY. AFTER HAVING TIME IN THE DINING GALICIA TO PAINT SHE HAD INCREASED AGGITATION. STATED THAT SHE FELT LIKE THE OTHER PATIENT IN THE DEPT WAS GETTING MORE ATTENTION AND SHE WAS JEALOUS. THE TREATMENT OF THE PATIENTS HAS BEEN EQUAL. THIS WAS DISCUSSED WITH HER AND SHE CALMED SLIGHTLY. SHE BECAME AGGITATED AND RAISED HER VOICE WHILE ON THE PHONE WITH HER MOTHER. STATED THAT STAFF WAS NOT EXPLAINING THINGS TO HER AND SHE DIDN'T KNOW WHAT WAS HAPPENING. STAFF HAS BEEN ACTIVLY ENGAGED WITH PATIENT THROUGHOUT THE SHIFT, REDIRECTED AND ANSWERING ANY QUESTIONS THAT SHE HAD. SHE SPOKE WITH THE INTERVENTIONAL RADIOLOGY RN AFTER THE CALL AND DEESCALTED. SHE WAS AGREEABLE TO PRN VISTARIL, STATED THAT SHE "NEEDED TO CALM DOWN AND RELAX". SHE DENIED SI, HI OR AVH.
[2024-02-26] MEDS ORDERED: Ibuprofen 600 MG Tab PO SCH (20:00)
[2024-02-26] MEDS ORDERED: Ibuprofen 600 MG Tab PO PRN (20:10)
[2024-02-26] MEDS ORDERED: ClonazePAM 0.5 MG Tab PO SCH (21:00)
[2024-02-26] MEDS ORDERED: TraZODone HCl 100 MG Tab PO SCH (21:00)
[2024-02-26] MEDS ORDERED: Propranolol HCL 20 MG TAB PO SCH (21:00)
[2024-02-26 22:29] VITALS: BP 143/90
[2024-02-27 08:29] VITALS: BP 107/73
[2024-02-27] MEDS ORDERED: Nicotine 21 MG PATCH TOP SCH (09:00)
[2024-02-27] MEDS ORDERED: Polyethylene Glycol 3350 17 gm PO SCH (09:00)
--- NOTE | 2024-02-27 18:08 | NUR ---
SHIFT SUMMARY PT A/O X3; PLEASANT AND COOPERATIVE WITH CARE. PT'S SPEECH IS PRESSURED AND TANGENTIAL. SHE OFTEN WANTS TO SPEAK WITH HER MOTHER AND SON ON THE PHONE. PT ALSO C/O PAIN AND NAUSEA. SHE HAS CREAM THAT SHE PUTS ON HER FEET BUT IT IS . RN ASKED IF IT IS POSSIBLE FOR PT'S MOTHER TO BRING IN A NEW TUBE. PT SAID SHE WOULD TALK TO HER MOTHER ABOUT THIS. PT MEDICATED PER EMR FOR PAIN, NAUSEA, AND ANXIETY. PT PARTICIPATED IN ALL GROUP ACTIVITIES THIS SHIFT AND SHOWERED THIS AM. DENIES SI, HI, OR ANY HALLUCINATIONS.
[2024-02-28 05:03] VITALS: BP 110/70
[2024-02-28 08:00] VITALS: BP 127/83
[2024-02-28] MEDS ORDERED: TROLAMINE SALICYLATE 10% CREAM 141 GM TUBE TOP PRN (14:50)
[2024-02-28] MEDS ORDERED: Magnesium Hydroxide Conc 10 ML UDC PO PRN (14:50)
--- NOTE | 2024-02-28 17:09 | NUR ---
SHIFT SUMMARY PT A/O X3; PLEASANT AND COOPERATIVE WITH CARE. PT DENIES SI, HI, OR ANY HALLUCINATIONS. HER SPEECH IS PRESSURED, TANGENTIAL, AND SHE SEEMS TO HAVE SOME RACING THOUGHTS. THIS MORNING SHE REPORTED THAT SHE WAS FEELING "IRRITATED" BECAUSE OF HER PAIN IN FEET, HIPS, KNEES, AND BACK. ORDER FOR ASPERCREME OBTAINED. PT ALSO C/O CONSTIPATION AND REPORTS NOT HAVING A BM FOR 5 DAYS. PRN ORDER FOR MILK OF MAGNESIA OBTAINED. PT PARTICIPATING IN GROUP AND ALL MILEU ACTIVITIES.
[2024-02-28] MEDS ORDERED: OLANZapine 10 MG Tab PO SCH (21:00)
--- NOTE | 2024-02-29 04:09 | NUR ---
Pt was visible on the unit this shift, watching television with staff and peers. Hygiene adequate. Pt c/o nausea early in the shift and was given PRN Zofran, with good effect. Pt is compliant with medications and denies SI/HI, as well as AVH. Pt c/o she has not had a bowel movement in 5 days. Educated pt about stimulating peristalsis by walking or self-massage of abdomen. Pt says she is interested in getting an enema. Shortly after receiving HS medications, Pt retired to bed. Pt observed resting comfortably with eyes closed in no apparent distress. Respirations even and unlabored. Pt did awaken briefly to request medication for anxiety and was given PRN Vistaril, with good effect. Pt returned to sleep. Checks done q15 per hospital protocol.
--- NOTE | 2024-02-29 09:16 | NUR ---
PT WAS AWAKE AND UP AT 0700, PT HAS BEEN TALKATIVE AND COMMUNICATIVE, PARTICIPATING IN MILIEU ACTIVITIES AND GROUP THIS MORNING. DENIES SI THOUGH SHAKES HER HEAD IN A "NO MOTION" WHEN ASKED ABOUT MOOD. PT IS REQUESTING MULTIVITAMIN AND B 12 SUPPLEMENT. PT REPORTS SHE SLEPT "ALL NIGHT," AND "WELL," SHE IS COOPERATIVE IN TAKING MEDICATIONS, SHE IS INDEPENDENT IN SHOWERING AND TOILETING, A ASSISTED PT IN CLEANING UP ROOM AND MAKING HER BED.
[2024-02-29 11:56] VITALS: BP 123/75
--- NOTE | 2024-02-29 16:50 | NUR ---
PT HAS CONTINUED TO PARTICIPATE IN MILIEU AND ACTIVITIES, SHE DID CO HEADACHE, STATED GOOD RELIEF WITH MOTRIN PRN. SHE UTILIZED SENSORY ROOM TO LISTEN TO MUSIC AND ALSO CHOSE AN ANIMATED [employer] MOVIE TO WATCH IN THE GROUP ROOM WITH STAFF AND PATIENTS. SHE ALSO SPOKE WITH BOTH HER BOYFRIEND AND MOTHER VIA PHONE.
--- NOTE | 2024-02-29 17:11 | NUR ---
Pt KRISTINE Signed to set up appointments Patient Signed KRISTINE to allow us to call [place] to set up appointments when discharged. Will follow up with coordinating those appointments on 03/01/24. Pt stated she did see Michelle previously but does have a PCP at [place].
--- NOTE | 2024-02-29 18:00 | NUR ---
SHIFT SUMMARY PT AA&OX4. PLEASANT AND COOPERATIVE WITH CARE. SPEECH AND EYE CONTACT APPROPRIATE. MOOD IS "BETTER" AFFECT IS EUTHYMIC. PT IS COMPLIANT WITH MEDICATIONS. DENIES SI, AVH. SAFETY PLAN IS IN EFFECT. REPORTS THAT SHE WOULD LIKE TO RETURN TO THERAPY AFTER DISCHARGE. REPORTS SHE HAS "IS INSECURE" AND HAS SOME "ABANDONMENT" ISSUES. SHE REPORTS STRESS WITH SPOUSE BEING ABSENT. STATES THAT SHE WOULD LIKE TO RETURN HOME TO KIDS. PT HAS BEEN UP TO MEALS AND GROOUP. SHE DENIES ANY CURRENT NEEDS.
--- NOTE | 2024-02-29 21:58 | NUR ---
Patient was observed to be meeting with her mother and boyfriend at start of shift. She was cooeprative with assessment. She took her medication without issue. She said that today and the visit were "good" but she said she was doing "bad." She was very negative in most of her speech throughout the evening. She complained to staff and on the phone that "I don't want to be locked up anymore. I don't know when I'm getting out of here. I haven't seen a doctor yet. I need a walker, it helps me walk easier." Staff attempted to explain the rationalle regarding a walker, but she did not appear at all interested. Staff also explained that she has been seeing the doctor every day, but she insisted that she had not.
[2024-03-01 07:57] VITALS: BP 117/85
--- NOTE | 2024-03-01 08:15 | NUR ---
PT UP EARLY TODAY, REPORTS SHE SLEPT WELL, GIVES SHORT CLIPPED ANSWERS BUT REPORTS HER MOOD IS "BETTER." PT SHOWERS AND DRESSES INDEPENDENTLY WITHOUT CUES OR PROMPTS. PT RECEIVES VEGETARIAN BREAKFAST TRAY THIS MORNING PER HER REQUESTS AND STATES SHE IS HAPPIER WITH THIS. GIVEN AM MEDICATIONS BUT REFUSES MIRALAX, REPORTS LOOSE STOOL LAST NIGHT.
--- NOTE | 2024-03-01 12:15 | NUR ---
PT PARTICIPATING IN MILIEU AND GROUP ACTIVITIES, CONTINUES TO GIVE SHORT CLIPPED ANSWERS, SHE IS EXPRESSING HER NEEDS AND ABLE TO MAKE NEEDS KNOWN THEY ARISE. SHE IS CURRENTLY IN MEDIA/GROUP ROOM WATCHING TV WITH PATIENTS AND STAFF.
--- NOTE | 2024-03-01 15:27 | NUR ---
Pt Appointment Follow up info Followed up with Transition of Care staff Michael [place] to find out why we havent heard about getting pt an appointment scheduled. He is sending out a urgent message to the behavioral team to get back to me by the end of shift. He also let me know Pt had a mammogram appointment today that was documented missed and it was her 4th missed apt in 6 months. I made sure he charted that pt is currently hospital to ensure that it does not count against her. Will let Rn know as well.
[2024-03-01 21:38] VITALS: BP 121/93
--- NOTE | 2024-03-02 04:35 | NUR ---
Patient was active in [facility] for most of the evening. She took a shower and had a snack. She was cooperative with assessment but provided short, mostly negative responses. She would also get upset if challenged or denied something. She took her medications without issue. She is able to make her needs known. Plan of care ongoing. She rested in her bed for most of the night. She was up briefly up around 0410 and had another snack before retunring to bed.
--- NOTE | 2024-03-02 04:40 | NUR ---
Patient woke up at 4am requesting a snack. She ate a sandwhich and cheese. She went back to her room and fell back to sleep. No noted issues or behaiors.
--- NOTE | 2024-03-02 08:38 | NUR ---
Pt is A&O x4, irritable, obsessing on d/c, "I need to be home with my family." Pt denies SI, HI, AVH. Eye contact is appropriate. Pt answered assessment questions with short, usually one-word answers, complaining about her situation continually. Pt spoke often about the need to "be out of here and home with my family. Fur Repair Inspector discussed with pt that she is scheduled to be discharged today but that the d/c order would not be entered until after the provider comes in. Pt reports bilateral foot pain 10/10w and requested PRN ibuprofen with her morning meds. Pt refused Miralax this morning, stating, "I don't need it today."
[2024-03-02 09:27] VITALS: BP 149/97
[2024-03-02] MEDS ORDERED: ALBU90OI INH (10:51)
[2024-03-02] MEDS ORDERED: CLON.5 PO (10:51)
[2024-03-02] MEDS ORDERED: LAMO100 PO (10:52)
[2024-03-02] MEDS ORDERED: NICO21TP TOP (10:52)
[2024-03-02] MEDS ORDERED: MIRALAX17 GM PO (10:53)
[2024-03-02] MEDS ORDERED: OLAN10 PO (10:53)
[2024-03-02] MEDS ORDERED: ARTHRICREAM RUB85 GM TOP (10:55)
--- NOTE | 2024-03-02 12:35 | NUR ---
DISCHARGE SUMARY Pt is dening SI, HI, and hallucinations. Pt is A&O, calm, cooperative. Industry Segment Specialist reviewed d/c instructions, d/c meds, and follow-on care steps with the pt; pt acknowledged understanding. Pt was given her posessions and allowed to change into street clothes. She is currently awaiting her ride. Staff will continue to monitor until pt's ride arrives.
== END 2024-03-02 12:57 | disposition home or self-care (01) | DRG 885 ==
LOC: BHU 11:47
PROVIDERS: ADMIT Psychiatry & Neurology Psychiatry
DX: F31.9 Bipolar disorder, unspecified (principal); R45.851 Suicidal ideations; G47.00 Insomnia, unspecified; I10 Essential (primary) hypertension; Z96.653 Presence of artificial knee joint, bilateral; Z88.8 Allergy status to other drugs, medicaments and biological substances; Z79.899 Other long term (current) drug therapy
CPT/HCPCS: A9270

== ENCOUNTER 2024-03-07 11:47 | Inpatient (IN) | payer OTHER ==
[~2024-03-07] VITALS: Ht 170.2 cm; Wt 93.2 kg
[~2024-03-07 11:47] MED LIST changes: +ARTHRICREAM RUB85 GM TOP; +CLON.5 PO; +LAMO100 PO; +NICO21TP TOP; +OLAN10 PO
[2024-03-07] MEDS ORDERED: LORazepam 2 MG/ML 1ML Injection IM PRN (13:35)
[2024-03-07] MEDS ORDERED: OLANZapine ODT 5 MG Tab MM PRN (13:35)
[2024-03-07] MEDS ORDERED: OLANZapine ODT 10 MG Tab MM PRN (13:35)
[2024-03-07] MEDS ORDERED: Haloperidol Lactate Inj. 5 MG/ML Injection IM PRN (13:35)
[2024-03-07] MEDS ORDERED: DiphenhydrAMINE HCl 50 MG/ML 1ML Vial IM PRN (13:40)
[2024-03-07] MEDS ORDERED: Albuterol HFA200 ACT/6.7 GM INH INH PRN (15:35)
[2024-03-07] MEDS ORDERED: ClonazePAM 0.5 MG Tab PO PRN (15:40)
[2024-03-07 16:29] VITALS: BP 133/95
--- NOTE | 2024-03-07 17:25 | NUR ---
ADMITTED AT 1545. PT IN AN AGITATED MOOD. MAD AT HER EX BOY FRIEND. DID INTAKE INFORMATION AND SIGNED CONSENT FORMS. TEARFUL AT TIMES. STATES SHE IS SI. DENIES A/V/H. HER PLAN WAS TO CUT HERSELF OR TO TAKE PILLS. IS A/O X4. AT THE END OF THE INTAKE TIME HER MOOD BECAME LESS AGITATED. WILL CONTINUE TO MONITOR PT.
[2024-03-07] MEDS ORDERED: LamoTRIgine 100 MG Tab PO SCH (21:00)
[2024-03-08 00:52] VITALS: BP 143/93
--- NOTE | 2024-03-08 04:28 | NUR ---
PATIENT WAS AWAKE AT THE BEGINNING OF THE SHIFT, SOMEWHAT INTERACTING WITH STAFF AND PEERS. SHE WAS ABLE TO MAKE NEEDS KNOWN. SHE HAS BEEN MUCH MORE PLEASANT AND COOPERATIVE, AND TRULY TRIES. SHE HAD A ROUGH TIME SLEEPING THIS SHIFT, MOSTLY DUE TO C/O PAIN, WHICH WAS TREATED WITH PRN MEDICATION WITH GOOD EFFECT. SHE WENT TO BED ABOUT 0300 AND STAYED IN BED WITH EYES CLOSED AND RESPIRATIONS CONFIRMED. SHE HAD NO S/SX SUICIDAL IDEATION THIS SHIFT.
[2024-03-08 08:43] VITALS: BP 130/92
[2024-03-08] MEDS ORDERED: Polyethylene Glycol 3350 17 gm PO SCH (09:00)
[2024-03-08] MEDS ORDERED: Lisinopril 10 MG Tab PO SCH (09:00)
[2024-03-08] MEDS ORDERED: Nicotine 21 MG PATCH TOP SCH (09:00)
[2024-03-08] MEDS ORDERED: Ibuprofen 600 MG Tab PO PRN (11:30)
[2024-03-08] MEDS ORDERED: ClonazePAM 0.5 MG Tab PO PRN (13:35)
[2024-03-08] MEDS ORDERED: TROLAMINE SALICYLATE 10% CREAM 141 GM TUBE TOP PRN (13:40)
--- NOTE | 2024-03-08 18:13 | NUR ---
PT HAS BEEN COOPERATIVE WITH CARE, SHE IS PARTICIPATING IN SOME ACTIVITIES, SHE IS ABLE TO MAKE NEEDS KNOWN, INITIALLY PT THIS MORNING REPORTS SHE IS FEELING "BETTER" THAN YESTERDAY AND DENIES ANY SUICIDAL IDEATIONS, DURING PROVIDER EVALUATIONS SHE STATES SHE IS STILL "VERY SUICIDAL," THIS EVENING SHE AGAIN STATES SHE IS NO LONGER FEELING SUICIDAL AND SHE IS ASKING ABOUT DISCHARGE. PT SHOWERING INDEPENDENTLY, ATTENDING MEALS AND EATING INDEPENDENTLY, SHE REQUESTED USE OF SENSORY ROOM AND MAKING PHONE CALLS TO FAMILY.
[2024-03-08] MEDS ORDERED: OLANZapine ODT 10 MG Tab PO SCH (21:00)
[2024-03-08 21:01] VITALS: BP 135/91
--- NOTE | 2024-03-09 04:28 | NUR ---
PT WAS SLEEPING AT START OF SHIFT, BUT WOKE FOR EVENING MEDICATIONS. HYGIENE ADEQUATE. PT WAS PLEASANT AND SMILING DURING INTERACTION WITH STAFF. PT SAYS SHE IS EXCITED TO GO HOME TOMORROW. PT WAS COMPLIANT WITH MEDICATIONS AND DENIES SI/HI, WELL AVH. CURRENTLY, PT IS IN BED WITH EYES CLOSED RESTING COMFORTABLY IN NAD. REPSIRATIONS EVEN AND UNLABORED. CHECKS DONE Q15.
--- NOTE | 2024-03-09 07:38 | NUR ---
PT AWAKE AND STATES SHE IS "OK," ONLY CO FEELING HUNGRY THIS MORNING. PT STATES SHE SLEPT BETTER LAST NIGHT THAN THE PREVIOUS NIGHT.
[2024-03-09 08:36] VITALS: BP 149/94
--- NOTE | 2024-03-09 16:31 | NUR ---
PT HAS BEEN COOPERATIVE WITH CARE, TAKING MEDICATIONS AND MAKING NEEDS KNOWN. SHE IS PARTICIPATING IN THE [facility], ATTENDING GROUPS. SPOKE TO PT MOTHER OVER THE PHONE SHE STATES PT HAS BEEN ANGRY AND EXPLOSIVE AT HOME, SHE IS STILL NOT AT BASELINE AND PT HAS CALLED EMERGENCY RESPONDERS ON HERSELF MULTIPLE TIMES BECAUSE SHE DIDN'T FEEL LIKE HERSELF, MOTHER REPORTS INCREASED CONFUSION AT TIMES, MOTHER HAS BEEN GIVING THE PT HER MEDICATIONS AND TAKING HER TO HER APPOINTMENTS, SHE HAS UPCOMING THERAPY AND PSYCHIATRY APPOINTMENTS IN ABOUT TWO WEEKS. PT MOTHER ALSO STATES PT HAS NOT BEEN ASKED TO LEAVE THE HOME AND SHE IS WELCOME TO RETURN.
[2024-03-09 20:02] VITALS: BP 148/90
--- NOTE | 2024-03-10 04:45 | NUR ---
EPIFANIO IN DAYROOM WITH PEERS AND STAFF WATCHING TELEVISION AT START OF SHIFT, APPEARS WELL- GROOMED, IS ALERT TO CURRENT SITUATION. DENIED HI/AVTH AND ENDORSED CONSTANT INTRUSIVE THOUGHTS OF SI WITH NO PLAN, AND PAIN 10/10 EVERYWHERE IN HER BODY. PRN ADVIL GIVEN WITH HS MEDS. SEE EMAR. PT IRRITABLE AND DEMANDING WITH STAFF AT TIMES AND IS ABLE TO BE REDIRECTED. REMAINS MEDICATION COMPLIANT AND IS ENGAGED IN TREATMENT. PT APPEARED TO SLEEP MOST OF SHIFT, CHEST RISING, IN NAD. SUPPORT AND ENCOURAGEMENT PROVIDED. SAFETY MEASURES MAINTAINED VIA Q15 MINUTE CHECKS.
[2024-03-10 08:39] VITALS: BP 140/97
--- NOTE | 2024-03-10 12:29 | NUR ---
PT CRYING WITHOUT TEARS, STATES SUICIDAL THOUGHTS ARE NOT STOPPING AND IT'S FRIGHTENING HER. SAT WITH PT IN THE SENSORY ROOM TO DISCUSS COPING SKILLS SHE HAS LEARNED, PT STATES SHE IS FEELING IMPROVED, SHE CHOSE TO STAY IN THE SENSORY ROOM AND LISTEN TO MUSIC, SHE STATES THIS IS HELPFUL.
--- NOTE | 2024-03-10 17:50 | NUR ---
PT HAS BEEN COOPERATIVE WITH CARE, SHE IS JOINING [facility] ACTIVITIES, SHE IS COMMUNICATIVE AND ABLE TO MAKE NEEDS KNOWN. SHE HAS SPOKEN TO HER FAMILY VIA PHONE, SHE HAS EXPRESSED SOME SI WITHOUT A PLAN OR INTENT, SHE IS BOTHERED BY THE SI AND HAS NEEDED REDIRECTION AND ENCOURAGEMENT TO UTILIZE THERAPUETIC COPING SKILLS. SHE CO GENERALIZED JOINT PAINS, HAVE DISCUSSED MOVEMENT AND EXERCISE. PT IS INTERESTED IN JOINING THE [facility] TO SPEND TIME IN THE POOL. GARCIAN PRITESH TWICE DURING THE SHIFT PT REPORTS GOOD RELIEF WITH THIS. PT IS MAKING GOALS AND EXPRESSED EXCITEMENT ABOUT VISITING HER FAMILY IN [place], STATES THEY HAVE PLANNED A TRIP IN A FEW MONTHS, SO SHE IS LOOKING FORWARD TO THIS.
[2024-03-10 20:10] VITALS: BP 131/98
--- NOTE | 2024-03-11 04:06 | NUR ---
EPIFANIO IN DAYROOM WITH PEERS AND STAFF WATCHING TELEVISION AT START OF SHIFT, APPEARS WELL- GROOMED, IS ALERT TO CURRENT SITUATION. DENIED SI/HI/AVTH AND ENDORSED PAIN 10/10 EVERYWHERE IN HER BODY. PRN ADVIL GIVEN SEE EMAR. PT CHILDLIKE, IRRITABLE, DEMANDING AND YELLING OUT OF ROOM THIS SHIFT DUE DEMANDING HER MEDICATIONS. PT EDUCATED ON PT CARE AND ENCOURAGED PT TO HAVE PATIENCE WITH NEEDS WHEN STAFF ARE OCCUPIED TENDING TO OTHER PEERS ON THE UNIT. PT APOLOGIZED AND WAS ABLE TO BE REDIRECTED. PT CAME TO THE NURSE S STATION AT 2351 STATING SHE COULD NOT SLEEP D/T ROOMATE SNORING, BECAME SLIGHTLY AGITATED/ANXIOUS AND REQUESTED PRN MEDICATION FOR SX MANAGEMENT. PRN ZYPREXA/KLONOPIN GIVEN ORDERED. PT REQUESTED TO ALSO SIT IN SENSORY ROOM UNTIL SHE TIRED. PT ALSO PROVIDED HEADPHONES IN ORDER TO LISTEN TO MUSIC. PT EVENTUALLY RETURNED TO ROOM AND APPEARED TO SLEEP, CHEST RISING, IN NAD. SAFETY MEASURES MAINTAINED VIA Q15 MINUTE CHECKS.
--- NOTE | 2024-03-11 09:07 | NUR ---
PT REPORTS SHE STARTED HER PERIOD, GIVEN SUPPLIES AND DENIES NEED FOR ANYTHING FURTHER AT THIS TIME. PT ENDORSES SOME SI THOUGH STATES IT IS "A LITTLE BETTER," THAN YESTERDAY, "BUT I JUST CAN'T MAKE IT STOP." DENIES ANY HI A/V/T HALLUCINATIONS. SHE EATS BREAKFAST AND IS COOPERATIVE WITH MEDICATIONS, SHE IS GIVEN MOTRIN FOR CO PAIN AND SHE REFUSES THE MIRALAX AND STATES SHE HAS ALREADY HAD A BM THIS MORNING.
[2024-03-11 09:12] VITALS: BP 141/98
[2024-03-12 02:57] VITALS: BP 144/96
--- NOTE | 2024-03-12 04:08 | NUR ---
PT IS VISIBLE ON THE UNIT BUT WITHDRAWN FROM PEERS. HYGIENE ADEQUATE. PT WAS INTERMITTENTLY FORGETFUL AND LABILE, BUT WAS OTHERISE COOPERATIVE AND GOAL ORIENTED. PT IS COMPLIANT WITH MEDICATIONS AND DENIES SI/HI AND AVH. CURRENTLY, PT IS IN BED WITH EYES CLOSED RESTING COMFORTABLY IN NAD. RESPIRATIONS EVEN AND UNLABORED. CHECKS DONE Q15.
[2024-03-12 09:10] VITALS: BP 154/98
--- NOTE | 2024-03-12 18:31 | NUR ---
SHIFT SUMMARY PT A/O X4 BUT LABILE. SHE WILL BECOME TEARFUL AND FRUSTRATED OFTEN. TODAY SHE REPORTED SHE WAS "SCARED" BECAUSE SHE DIDN'T WANT TO FALL IN THE SHOWER. SHE CAN APPEAR CHILD-LIKE AND IS FORGETFUL AT TIMES. SHE DENIES SI, HI, OR ANY HALLUCINATIONS. VISITED WITH MOTHER THIS SHIFT. PT HAS BEEN PARTICIPATING IN GROUP ACTIVITIES AND [facility].
--- NOTE | 2024-03-12 22:29 | NUR ---
PT STATED SHE HAD A GOOD DAY AND GOOD VISIT WITH HER MOTHER AND HER "EX".PAIN ACHE OF BODY FROM ARTHRITIS 02/03. GIVEN IBUPROPHEN FOR PAIN. SHE HAS BEEN PLAYING BALL IN HALLWAY WITH AN OTHER PATIENT. APPEARS TO BE STABLE AT THIS MOMENT. WILL CONTINUE TO MONITOR.
[2024-03-13 03:17] VITALS: BP 134/78
--- NOTE | 2024-03-13 05:41 | NUR ---
SHIFT SUMMARY PT WENT TO BED AT 2300 ND SLEPT UNTIL 0515. SHE AND MALE PATIENT HANGING OUT WITH CLOSENESS. SHE THEN WENT INTO HIS ROOM. SHE AND HIM BOTH WERE TOLD THAT IT IS UNACCEPTABLE AND THERE ARE RULES HERE. SHE THEN WAS GIVEN COFFEE TO DRINK AND NO ISSUE MADE. WILL CONTINUE TO MONITOR.
[2024-03-13 08:29] VITALS: BP 143/85
--- NOTE | 2024-03-13 18:10 | NUR ---
SHIFT SUMMARY PT A/O X3; AND COOPERATIVE WITH CARE. PT REPORTS SUICIDAL THOUGHTS THAT "NEVER GO AWAY." HOWEVER, SHE HAS NO PLAN OR INTENT. SHE DENIES HI OR ANY HALLUCINATIONS. SHE IS PARTICIPATING IN GROUP AND [facility] ACTIVITIES. SHE SAYS HER MOOD IS "OK" BUT REMAINS LABILE.
[2024-03-13] MEDS ORDERED: OLANZapine ODT 5 MG Tab PO SCH (21:00)
[2024-03-13 21:09] VITALS: BP 140/91
--- NOTE | 2024-03-14 04:18 | NUR ---
PT IS VISIBLE ON THE UNIT AND INTERACTS APPROPRIATELY WITH PEERS. HYGIENE ADEQUATE. PT IS COMPLIANT WITH MEDICATIONS AND DENIES SI/HI AND AVH. PT IS EASILY FRUSTRATED AND IMPATIENT WHEN REQUESTS MADE. PT C/O BILATERAL FOOT PAIN AND THEY DID APPEAR ABNORMAL. PT ENCOURAGED TO SEE A ASSISTANT PROFESSOR OF BUSINESS UPON DISCHARGE. CURRENTLY, PT IS IN BED RESTING COMFORTABLY IN NAD. RESPIRATIONS EVEN AND UNLABORED. CHECKS DONE Q15.
[2024-03-14 07:30] VITALS: BP 130/82
[2024-03-14 08:58] VITALS: BP 131/79
--- NOTE | 2024-03-14 17:34 | NUR ---
SHIFT SUMMARY PT AxOx4. PLEASANT AND COOPERATIVE WITH CARE. PT PARTICIPATED IN GROUPS THIS SHIFT, WAS COMPLIANT WITH MEDS, AND MINGLED FREQUENTLY WITH PEERS/STAFF ON THE UNIT THROUGHOUT THE DAY. PT REPORTED POOR SLEEP LAST NOC. PROVIDER NOTIFIED AND INCREASED ZYPREXA TO BE STARTED AT BEDTIME. PT MADE AWARE. PT HAD SHOWER TODAY. PT DENIED SI/HI AND AVH. PT IS CURRENTLY SITTING IN THE [employer] EATING DINNER. DENIES ANY NEEDS AT THIS TIME.
[2024-03-14 20:37] VITALS: BP 139/89
[2024-03-14] MEDS ORDERED: OLANZapine ODT 10 MG Tab PO SCH (21:00)
--- NOTE | 2024-03-14 21:48 | NUR ---
Pt was isolative to bed this shift and withdrawn from peers. Hygiene adequate. Pt reports feeling sad over her mother having car trouble and thus unable to visit, her dog getting loose from the house and her boyfriend drinking again. Discussed focusing on what one can control and consciously trying to accept what is beyond control. Pt verbalized understanding and seemed less anxious afterwards. Pt was compliant with medications including PRN Motrin for pain 04/05. Pt was asleep during reassessment. Denies SI/HI and AVH. Will continue to monitor Q15.
--- NOTE | 2024-03-15 06:25 | NUR ---
PT OBSERVED RESTING COMFORTABLY IN BED WITH EYES CLOSED IN NAD. RESPIRATIONS EVEN AND UNLABORED. PT AWOKE THIS MORNING C/O ANXIETY AND PASSIVE SI. PT GIVEN PRN MEDICATION, WITH GOOD EFFECT. CHECKS DONE Q15.
[2024-03-15 08:50] VITALS: BP 141/86
--- NOTE | 2024-03-15 17:16 | NUR ---
SHIFT SUMMARY PT UP AND PARTICIPATED IN GROUPS TODAY. PARENTS VISTED AND BROUGHT IN A SPORTS BRA. PT ASKED FOR A LIST OF THE MEDICATIONS SHE IS TAKING.. GIVEN TO PT AND THEN SHE GAVE IT TO HER MOTHER. EARLIER SHE REQUESTED FOR THE NURSE TO HELP GIVE HER A SHOWER. EXPLAINED TO HER SHE HAS TO DO HER ADL'S ON HER OWN. SHE FEELS SHE IS HYPED UP ON HER MEDICATIONS. WILL PASS IT ON TO THE NEXT RN SO CAN BE ASKED ABOUT IT IN THE MORNING. HAS BEEN ACTIVE AND UP IN THE HALLS TODAY. WILLL CONTINUE TO MONITOR.
--- NOTE | 2024-03-16 04:14 | NUR ---
ASSUMED CARE FROM PRIOR SHIFT. PATIENT IS UP VISITING WITH STAFF AND OTHER PATIENTS APPROPRIATELY. SHE IS A/O X4, ABLE TO VOICE NEEDS AND HAVE MEANINGFUL CONVERSATION. SHE TELLS ME SHE IS "NERVOUS ABOUT GOING HOME". SHE DENIES SI, AH AND VH. SHE GOES TO BED WITHOUT ENCOURAGEMENT. SHE IS COMPLIANT WITH CARE, ASSESSMENT AND MEDICATIONS. SHE DID SLEEP THROUGH MOST OF THE NIGHT. SHE DID WAKE UP AND ASK FOR PRN MEDICATION FOR INCREASED ANXIETY. SHE FELL BACK TO SLEEP WITHOUT ANY BEHAVIORS OF ISSUES.
[2024-03-16 08:52] VITALS: BP 127/82
[2024-03-16] MEDS ORDERED: Prinivil10 MG PO (14:17)
[2024-03-16] MEDS ORDERED: NICO21TP TOP (14:17)
[2024-03-16] MEDS ORDERED: LAMO100 PO (14:17)
--- NOTE | 2024-03-16 15:01 | NUR ---
DISCHARGE SUMMARY PT AxOx4. PLEASANT AND COOPERATIVE WITH CARE. PT IS DISCHARGING HOME TODAY WITH HER MOTHER. PT DENIES SI/HI AND AVD THIS SHIFT. SHE HAS BEEN FOLLOWING HER TREATMENT PLAN INCLUDING ATTENDING GROUPS, TAKING MEDS PRESCRIBED AND SOCIALIZING ON THE UNIT WITH PEERS/STAFF. PT REPORTS "LOOKING FORWARD TO GOING HOME." DC INSTRUCTIONS PROVIDED INCLUDING DC MED LIST, FOLLOW UP APPOINTMENTS WITH PSYCHIATRIST AND PCP AND PT EDUCATION ON DIAGNOSIS AND MEDICATION. PT VERBALIZED UNDERSTANDING. DENIED FURTHER QUESTIONS. PT'S BELONGINGS WERE RETURNED AND PT WAS SAFELY ESCORTED OUT BY A TO HER RIDE.
== END 2024-03-16 15:00 | disposition home or self-care (01) | DRG 885 ==
LOC: BHU 11:47
PROVIDERS: ADMIT Psychiatry & Neurology Psychiatry
DX: F31.9 Bipolar disorder, unspecified (principal); R45.851 Suicidal ideations; F17.210 Nicotine dependence, cigarettes, uncomplicated; F12.90 Cannabis use, unspecified, uncomplicated; I10 Essential (primary) hypertension; Z88.8 Allergy status to other drugs, medicaments and biological substances; Z91.018 Allergy to other foods; Z79.899 Other long term (current) drug therapy; Z96.653 Presence of artificial knee joint, bilateral
CPT/HCPCS: A9270; J1200; J2060

== ENCOUNTER → 2025-01-01 | Outpatient (CLI) | payer OTHER | END | disposition home or self-care (01) | LOC: LAB 15:49 → LAB SHORT 15:49 | DX: L02.213 Cutaneous abscess of chest wall (principal) | CPT/HCPCS: 87070; 87075; 87076; 87205 ==